=== PATIENT | male | born 1975 | race Caucasian/White ===

== ENCOUNTER → 2018-03-31 | Outpatient (CLI) | payer MEDICAID ==
--- NOTE | 2018-03-31 10:58 | MR ---
EXAMINATION TYPE: MR knee RT wo con DATE OF EXAM: 03/31/2018 COMPARISON: NONE HISTORY: Right knee pain, soft tissue mass distal to the medial knee. TECHNIQUE: Multiplanar, multisequence images of the knee is performed without IV contrast. FINDINGS: MEDIAL MENISCUS: Anterior horn is intact without tear. There is oblique increased signal posterior ho rn of medial meniscus appears to extend to inferior articular surface, in addition there is oblique i ncreased signal centrally in the avascular zone extends to both articular surfaces with fraying seen best sagittal image 8. LATERAL MENISCUS: Anterior and posterior horns some increased signal not definitively extending to ar ticular surface. CRUCIATE LIGAMENTS: The anterior and posterior cruciate ligaments are intact and unremarkable. COLLATERAL LIGAMENTS: The medial collateral ligament and lateral collateral ligament complex are inta ct and unremarkable. EXTENSOR MECHANISM: Visualized quadriceps and patellar tendons are intact. Increased signal proximal patellar pole is noted without suspicious tear or thinning fibers. EFFUSION: No significant suprapatellar joint effusion. POPLITEAL CYST: No popliteal/alberto cyst. TRICOMPARTMENT SPACES: Tricompartment joint spaces are fairly well preserved. There is mild to modera te tibial condylar spurring noted. CARTILAGE: Tricompartment articular cartilage is fairly well-maintained. There is no significant elyse dromalacia patella. BONE MARROW SIGNAL: Slight heterogeneity consistent with red marrow reconversion is present. No suspi cious edema is seen. OTHER: There is marker placed at level of palpable abnormality sagittal image 11 and coronal image 9. Within the subcutaneous fat at this level there is multiloculated area of slight T1 hypointensity an d T2 hyperintensity in almost a tubular configuration extending towards the mid to distal aspect of t he medial patellar tendon medially measuring roughly 3.1 cm transversely by 1.1 cm AP diameter by 1.0 cm craniocaudal dimension. This appears to have deeper extension to a larger multiloculated mass or fluid collection measuring 2.7 cm transversely axial image 12 by roughly 3.0 cm AP diameter by roughl y 2.6 cm craniocaudal diameter sagittal image 19. This is in close proximity to the anterior horn of medial meniscus likely reflecting paramensical cyst. IMPRESSION: 1. Full-thickness tear medial meniscus most prominent in the central avascular zone with additional f raying. 2. Lesion of concern along the anterior medial aspect of the proximal tibia is felt to reflect produc t of a para meniscal cyst related to tear that has elongated extension into the subcutaneous fat caus ing palpable abnormality. 3. [id number] tendinosis proximal patellar tendon.
== END | disposition home or self-care (01) ==
LOC: RADMRIMAIN 06:22
PROVIDERS: ATTEND Orthopaedic Surgery Sports Medicine
DX: S83.241A Other tear of medial meniscus, current injury, right knee, initial encounter (principal); M76.51 Patellar tendinitis, right knee

== ENCOUNTER 2019-10-17 10:45 | Emergency (ER) | payer MEDICAID, OTHER ==
[2019-10-17 10:50] VITALS: PULSE 86; RESP 18; TEMP 97.5
--- NOTE | 2019-10-17 11:05 | ED ---
Fall HPI - General Chief Complaint: Fall Stated Complaint: Fall Time Seen by Provider: 10/17/19 10:55 Source: patient, RN notes reviewed Mode of arrival: ambulatory Limitations: no limitations - History of Present Illness Initial Comments: 44-year-old male presents emergency Department with chief complaint of right knee pain. Patient states that he was coming off the last 2 steps of a ladder and states that he landed straight leg. Patient is to follow pop, over stretching his leg. Patient states that he woke up today and the pain is worse, increased swelling. 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 Patient states she's had no issues with his right. Patient states that he can barely bend. He states been feeling a lot of popping, clicking. - Related Data Previous Rx's Medication Instructions Recorded Ibuprofen [Motrin] 600 mg PO Q8HR PRN #30 tab 10/17/19 Allergies Allergy/AdvReac Type Severity Reaction Status Date / Time No Known Allergies Allergy Verified 10/17/19 10:49 Review of Systems ROS Statement: Those systems with pertinent positive or pertinent negative responses have been documented in the HPI. ROS Other: All systems not noted in ROS Statement are negative. Past Medical History Past Medical History: No Reported History History of Any Multi-Drug Resistant Organisms: None Reported Past Surgical History: Orthopedic Surgery Past Psychological History: No Psychological Hx Reported Smoking Status: Current every day smoker Past Alcohol Use History: None Reported Past Drug Use History: Marijuana General Exam Limitations: no limitations General appearance: alert, in no apparent distress Head exam: Present: atraumatic, normocephalic, normal inspection Eye exam: Present: normal appearance, PERRL, EOMI. Absent: scleral icterus, conjunctival injection, periorbital swelling Respiratory exam: Present: normal lung sounds bilaterally. Absent: respiratory distress, wheezes, rales, rhonchi, stridor Cardiovascular Exam: Present: regular rate, normal rhythm, normal heart sounds. Absent: systolic murmur, diastolic murmur, rubs, gallop, clicks Extremities exam: Present: other (Right leg there is some mild swelling on the knee, no erythema neurovascular intact patient has pain with range of motion of passive and active range of motion there is some pain with valgus and varus no true laxity noted.) Course Vital Signs 10/17/19 10:46 Temperature 97.5 F L Pulse Rate 86 Respiratory 18 Rate Blood Pressure 158/100 O2 Sat by Pulse 100 Oximetry Medical Decision Making - Medical Decision Making X-ray shows moderate amount of swelling, tricompartmental changes. An concerns probable ligamentous injury including ACL versus MCL. Patient placed in knee immobilizer will follow-up with orthopedics and return for any worsening symptoms. Disposition Clinical Impression: Fall, Right knee sprain Disposition: HOME SELF-CARE Condition: Stable Instructions (If sedation given, give patient instructions): Knee Sprain (ED), Knee Immobilizer (ED) Additional Instructions: Please return to the Emergency Department if symptoms worsen or any other concerns. Prescriptions: Ibuprofen [Motrin] 600 mg PO Q8HR PRN #30 tab PRN Reason: Pain Is patient prescribed a controlled substance at d/c from ED?: No Referrals: None,Stated [Primary Care Provider] - 1-2 days Dilip Lacy MD [STAFF PHYSICIAN] - 1-2 days Time of Disposition: 11:46
--- NOTE | 2019-10-17 11:34 | XR ---
EXAMINATION TYPE: XR knee complete RT DATE OF EXAM: 10/17/2019 CLINICAL HISTORY: Slip and fall injury with pain. TECHNIQUE: Three views of the right knee are obtained. COMPARISON: None. FINDINGS: There is no acute fracture/dislocation evident in right knee. Mild tricompartment joint sp aroldo loss. Mild to moderate subcutaneous edema medially with more focal roughly 3.5 cm subcutaneous he matoma suspected proximal tibial metaphyseal level. IMPRESSION: As above.
[2019-10-17] MEDS ORDERED: ACET/COD 300 MG/30 MG STARTER PACK 6 TAB BTL PO STA (11:47)
[2019-10-17 11:59] VITALS: BP 138/90
== END 2019-10-17 11:52 | disposition home or self-care (01) ==
LOC: EC 10:45
DX: S83.91XA Sprain of unspecified site of right knee, initial encounter (principal); F17.200 Nicotine dependence, unspecified, uncomplicated; Z85.830 Personal history of malignant neoplasm of bone; X50.9XXA Other and unspecified overexertion or strenuous movements or postures, initial encounter
CPT/HCPCS: 99283 ×2; 73562; L1830

== ENCOUNTER → 2019-11-02 | Outpatient (CLI) | payer OTHER ==
--- NOTE | 2019-11-04 14:49 | MR ---
EXAMINATION TYPE: MR knee RT wo con DATE OF EXAM: 11/02/2019 COMPARISON: 03/31/2018 HISTORY: Right knee pain, injury 2yrs ago Multiplanar multiecho imaging of the right knee was performed without contrast. The anterior and posterior cruciate ligaments are intact. There is moderate size knee joint effusion. There is 2.6 x 3 cm cystic fluid collection in the subcutaneous tissues at the anterior medial aspec t of the proximal tibia. The collateral ligaments appear intact. There is horizontal defect of the in ferior surface of the posterior horn medial meniscus related to horizontal tear. The lateral meniscus appears intact. There is no evidence for fracture. I see no focal bone destruction. IMPRESSION: No evidence of ligamentous tear. Horizontal tear of the posterior horn medial meniscus. Large knee joint effusion. Loculated cystic fluid collection in the subcutaneous tissues at the medial tibia that does not appea r to communicate with the knee joint effusion. No fracture. There is progression of the meniscal tear compared to previous exam. Cystic subcutaneous fluid collec tion increased compared to old exam. Knee joint effusion mostly new compared to old exam.
== END | disposition home or self-care (01) ==
LOC: RADMRIMAIN 11:59
PROVIDERS: ATTEND Orthopaedic Surgery
DX: M25.461 Effusion, right knee (principal); S83.206A Unspecified tear of unspecified meniscus, current injury, right knee, initial encounter

== ENCOUNTER → 2019-11-16 | Outpatient (CLI) | payer OTHER ==
[2019-11-16 16:44] LABS: Basophils # (A) 0.1 k/uL (0-0.2); Basophils % (A) 0 %; Eosinophils # (A) 0.3 k/uL (0-0.7); Eosinophils % (A) 2 %; HCT 46.7 % (39.0-53.0); HGB 15.5 gm/dL (13.0-17.5); Lymphocytes # (A) 2.5 k/uL (1.0-4.8); Lymphocytes % (A) 23 %; MCHC 33.2 g/dL (31.0-37.0); MCV 90.5 fL (80.0-100.0); Mean Platelet Volume 12.3; Monocytes # (A) 0.7 k/uL (0-1.0); Monocytes % (A) 6 %; Neutrophils % (A) 65 %; Platelet Count 192 k/uL (150-450); RBC 5.16 m/uL (4.30-5.90); RDW 12.6 % (11.5-15.5); WBC 10.7 k/uL (3.8-10.6)
[2019-11-16 16:57] LABS: Potassium 4.6 mmol/L (3.5-5.1)
== END | disposition home or self-care (01) ==
LOC: LABPAT 16:09
PROVIDERS: ATTEND Orthopaedic Surgery
DX: Z01.812 Encounter for preprocedural laboratory examination (principal); M23.91 Unspecified internal derangement of right knee
CPT/HCPCS: 80051; 85025

== ENCOUNTER → 2019-11-24 | Day surgery (SDC) | payer OTHER ==
[2019-11-23 08:19] VITALS: BMI 31.5
[2019-11-24 09:12] VITALS: TEMP 97
[2019-11-24 10:06] VITALS: RESP 17
[2019-11-24 10:36] VITALS: BP 136/90; PULSE 85
== END | disposition home or self-care (01) ==
LOC: OR 06:33
PROVIDERS: ATTEND Orthopaedic Surgery
DX: S83.241A Other tear of medial meniscus, current injury, right knee, initial encounter (principal); S83.281A Other tear of lateral meniscus, current injury, right knee, initial encounter; S83.31XA Tear of articular cartilage of right knee, current, initial encounter; X58.XXXA Exposure to other specified factors, initial encounter; M67.461 Ganglion, right knee; M19.90 Unspecified osteoarthritis, unspecified site; Z98.890 Other specified postprocedural states; F17.210 Nicotine dependence, cigarettes, uncomplicated; E66.9 Obesity, unspecified; Z68.36 Body mass index [BMI] 36.0-36.9, adult; Z87.39 Personal history of other diseases of the musculoskeletal system and connective tissue; Z80.9 Family history of malignant neoplasm, unspecified; Z79.1 Long term (current) use of non-steroidal anti-inflammatories (NSAID)
CPT/HCPCS: 88304; 29880; 29879; 27328; J2250; J1100; J0690; J2405; J2001; J3010; J2704; J1170

== ENCOUNTER 2020-08-27 11:51 | Emergency (ER) | payer OTHER ==
[2020-08-27 11:56] VITALS: BP 122/71; PULSE 78; RESP 18; TEMP 98.3
[2020-08-27] MEDS ORDERED: KETOROLAC 15 MG/ML 1 ML VIAL IM STA (12:17)
[2020-08-27] MEDS ORDERED: ACET/COD 300 MG/30 MG STARTER PACK 6 TAB BTL PO STA (12:17)
[2020-08-27] MEDS ORDERED: MORPHINE SULFATE 4 MG/ML SYRINGE IM STA (12:17)
--- NOTE | 2020-08-27 12:20 | ED ---
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 He presents today after lifting a couch yesterday and felt a snap and pull in his right shoulder. He reports since that time he cannot do any range of motion within the right shoulder. He states that he is right-handed. Patient states that he has some shooting pains going down her arm with range of motion. Patient reports he's had a history of being right-handed. - Related Data Home Medications Medication Instructions Recorded Confirmed Kratom 3 gram PO BID PRN 11/24/19 11/24/19 Previous Rx's Medication Instructions Recorded HYDROcodone/APAP 7.5-325MG [[place] 1 each PO Q6HR PRN #28 tab 11/24/19 7.5] Ibuprofen 800 mg PO Q8H PRN #40 tab 11/24/19 HYDROcodone/APAP 5-325MG [[place] 1 tab PO Q6HR PRN #10 tab 08/27/20 5-325] Ibuprofen [Motrin] 600 mg PO Q8HR PRN #20 tab 08/27/20 Allergies Allergy/AdvReac Type Severity Reaction Status Date / Time No Known Allergies Allergy Verified 08/27/20 11:56 Review of Systems ROS Statement: Those systems with pertinent positive or pertinent negative responses have been documented in the HPI. ROS Other: All systems not noted in ROS Statement are negative. 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 History of Any Multi-Drug Resistant Organisms: None Reported Past Surgical History: Orthopedic Surgery Past Psychological History: No Psychological Hx Reported Smoking Status: Current every day smoker Past Alcohol Use History: None Reported Past Drug Use History: Marijuana General Exam - General Exam Comments Initial Comments: 45-year-old male. Alert and oriented. Limitations: no limitations General appearance: alert, in no apparent distress Head exam: Present: atraumatic, normocephalic, normal inspection Eye exam: Present: normal appearance, PERRL, EOMI. Absent: scleral icterus, conjunctival injection, periorbital swelling ENT exam: Present: normal exam, mucous membranes moist Neck exam: Present: normal inspection. Absent: tenderness, meningismus, lymphadenopathy Respiratory exam: Present: normal lung sounds bilaterally. Absent: respiratory distress, wheezes, rales, rhonchi, stridor Cardiovascular Exam: Present: regular rate, normal rhythm, normal heart sounds. Absent: systolic murmur, diastolic murmur, rubs, gallop, clicks GI/Abdominal exam: Present: soft, normal bowel sounds. Absent: distended, tenderness, guarding, rebound, rigid Right Shoulder Exam: Present: normal inspection, tenderness, swelling. Absent: full ROM ( cannot do abduction or extension of the shoulder more than 15. ) Elbow exam: Present: normal inspection, full ROM Forearm Wrist exam: Present: normal inspection, full ROM Hand Wrist exam: Present: normal inspection, full ROM Neuro motor exam: Present: wrist extension intact, thumb opposition intact, thumb IP flexion intact, thumb adduction intact, fingers 2-5 abduction intact Back exam: Present: normal inspection Neurological exam: Present: alert, oriented X3, CN II-XII intact Psychiatric exam: Present: normal affect, normal mood Skin exam: Present: warm, dry, intact, normal color. Absent: rash Course Vital Signs 08/27/20 11:54 Temperature 98.3 F Pulse Rate 78 Respiratory 18 Rate Blood Pressure 122/71 O2 Sat by Pulse 100 Oximetry Medical Decision Making - Medical Decision Making 45-year-old male presents emergency department today for evaluation for right shoulder pain. Patient reportedly was lifting a couch and felt a sudden pop. 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 Discusses liquid chronic injury to the rotator cuff and edematous lifting his cause a complete separation of rotator cuff ligaments in muscles. He has a limited range of motion. X-ray showed no evidence of fracture or chronic arthropathy and elevation clavicle with before meals separation. There are no direct fall or trauma to the area. I did advise Patient follow-up with orthopedic and will discharge Patient with anti- inflammatory pain medication. Given no until cleared by orthopedic for work. All questions answered. - Radiology Data Radiology results: report reviewed Chronic arthropathy. Slight elevation of the clavicle can be socially with before meals joint separation. Correlate clinically. Disposition Clinical Impression: Injury of right rotator cuff Disposition: HOME SELF-CARE Condition: Good Instructions (If sedation given, give patient instructions): Rotator Cuff Injury (ED) Additional Instructions: Patient has a follow-up with e business specialist. Take the medication as prescribed. Return to emergency department if any alarming signs or symptoms occur. Patient can have his arm in the sling but still remember to take out frequently and complete range of motion to prevent frozen shoulder syndrome. Prescriptions: Ibuprofen [Motrin] 600 mg PO Q8HR PRN #20 tab PRN Reason: Pain HYDROcodone/APAP 5-325MG [[place] 5-325] 1 tab PO Q6HR PRN #10 tab PRN Reason: Pain Is patient prescribed a controlled substance at d/c from ED?: Yes If prescribed controlled substance>3 days was MAPS reviewed?: Prescribed <3 Days If opioid is for acute pain is fill amount 7 days or less?: Yes If Rx opioid, was Start Talking consent form obtained?: Yes Referrals: None,Stated [Primary Care Provider] - 1-2 days Steven Kumar DO [Doctor of Osteopathic Medicine] - 1-2 days Dilip Lacy MD [STAFF PHYSICIAN] - 1-2 days Time of Disposition: 13:05
--- NOTE | 2020-08-27 12:52 | XR ---
EXAMINATION TYPE: XR shoulder complete RT DATE OF EXAM: 08/27/2020 COMPARISON: NONE HISTORY: Pain TECHNIQUE: Three views are submitted. FINDINGS: There is widening of the AC joint which likely is chronic and may be on the basis of acro ostial lysi s. Rounded well-corticated chronic appearing densities are seen along the upper margin of the AC join t. The degree of AC joint separation not excluded. No acute fracture. No dislocation. IMPRESSION: 1. Chronic arthropathy. Slight elevation of the clavicle can be associated with an AC joint separatio n correlate clinically.
== END 2020-08-27 13:23 | disposition home or self-care (01) ==
LOC: EC 11:51
DX: S46.001A Unspecified injury of muscle(s) and tendon(s) of the rotator cuff of right shoulder, initial encounter (principal); F17.200 Nicotine dependence, unspecified, uncomplicated; X50.0XXA Overexertion from strenuous movement or load, initial encounter; Y92.69 Other specified industrial and construction area as the place of occurrence of the external cause; Y99.0 Civilian activity done for income or pay
CPT/HCPCS: 73030; 99284; 96372 ×2; J2270; J1885

== ENCOUNTER → 2020-09-19 | Outpatient (CLI) | payer OTHER ==
--- NOTE | 2020-09-19 16:55 | MR ---
EXAMINATION TYPE: MR shoulder RT wo con DATE OF EXAM: 09/19/2020 COMPARISON: None HISTORY: Pain Technique: Multiplanar, multiecho imaging on a 3.0 Hilda magnet is performed through the shoulder. Findings: There is diffuse marked thickening through the long head biceps tendon sheath with increase d signal. Long head biceps tendon the tendon is not identified. Tendon rupture should be considered No significant joint effusion is evident.Glenoid labrum as visualized on this noncontrast study appea rs intact. Rotator cuff tendons are evaluated. There is thickening of the distal supraspinatus tendon. Diffuse increased signal is also present to the tendon. Small amount of fluid is within the subacromial bursa and subdeltoid bursa. Perforation and partial tear without retraction is present. The distal suprasp inatus tendon is thickened. Rotator cuff muscles are intact without signal abnormality or fatty infiltration The acromioclavicular junction is hypertrophied. Some downward sloping of the distal acromion is pres ent. IMPRESSIONS: 1. Rupture of the distal long head biceps tendon within the tendon sheath may be present. Clinical co rrelation is recommended. Large amount of fluid is present, distending the sheath. Severe Tendinosis may be considered. 2. Thickening of the distal supraspinatus tendon with signal transversing the tendon. Perforation and tear of the distal supraspinatus tendon is present. No tendon or muscle retraction is evident.
== END | disposition home or self-care (01) ==
LOC: RADMRIMAIN 11:07
PROVIDERS: ATTEND Orthopaedic Surgery
DX: S46.111A Strain of muscle, fascia and tendon of long head of biceps, right arm, initial encounter (principal); M25.811 Other specified joint disorders, right shoulder; M75.101 Unspecified rotator cuff tear or rupture of right shoulder, not specified as traumatic

== ENCOUNTER → 2020-09-27 | Outpatient (CLI) | payer BC ==
[2020-09-27 11:56] LABS: Basophils # (A) 0.1 k/uL (0-0.2); Basophils % (A) 1 %; Eosinophils # (A) 0.2 k/uL (0-0.7); Eosinophils % (A) 3 %; HCT 52.4 % (39.0-53.0); Lymphocytes # (A) 1.7 k/uL (1.0-4.8); Lymphocytes % (A) 19 %; MCH 30.2 pg (25.0-35.0); MCHC 32.4 g/dL (31.0-37.0); Mean Platelet Volume 10.7; Monocytes # (A) 0.5 k/uL (0-1.0); Monocytes % (A) 5 %; Neutrophils # (A) 6.4 k/uL (1.3-7.7); Neutrophils % (A) 71 %; Platelet Count 215 k/uL (150-450); RBC 5.64 m/uL (4.30-5.90); RDW 13.3 % (11.5-15.5)
[2020-09-27 12:06] LABS: Potassium 5.2 mmol/L (3.5-5.1)
[2020-09-27 12:57] LABS: Large Platelets Present
== END | disposition home or self-care (01) ==
LOC: LABPAT 10:36
PROVIDERS: ATTEND Orthopaedic Surgery
DX: Z01.818 Encounter for other preprocedural examination (principal); M75.41 Impingement syndrome of right shoulder
CPT/HCPCS: 80051; 85025

== ENCOUNTER 2020-10-04 07:29 | Day surgery (SDC) | payer BC, OTHER ==
[2020-10-02 11:34] VITALS: BMI 31.5
--- NOTE | 2020-10-03 10:04 | HP ---
HISTORY AND PHYSICAL CHIEF COMPLAINT: Right shoulder pain. 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 He was picking up a couch when he felt a pop in his shoulder. He is having a difficult time raising his arm ever since. He is having night symptoms. His pain is 9/10. He denies previous significant problems. PAST MEDICAL HISTORY: Otherwise negative. PAST SURGICAL HISTORY: Significant for bilateral carpal tunnel surgery and left knee surgery. CURRENT MEDICATIONS: None. ALLERGIES: He denies drug allergies. FAMILY HISTORY: Significant for cancer. SOCIAL HISTORY: Significant for 1/2 pack per day tobacco use. REVIEW OF SYSTEMS: Sixteen-point review of systems otherwise reviewed and is noncontributory. PHYSICAL EXAMINATION: On examination, the patient is approximately 5 feet 10 inches, 220 pounds of endomorphic habitus. HEENT exam is nonfocal. Neck is supple. On examination of the right shoulder, he is tender about the anterior subacromial space. Active range of motion forward elevation 140 degrees, external rotation with arm side 50 degrees, internal rotation to L4. Motor strength is 5 minus over 5 for external rotation, 4+ over 5 for abduction. Impingement tests, Neer test, and Speed test are positive. His distal neurovascular exam appears intact in the right upper extremity. MRI report 09/19/2020 shows evidence of a proximal biceps rupture in addition to supraspinatus tear. IMPRESSION: Acute right rotator cuff tear/proximal biceps rupture. RECOMMENDATIONS: I talked to the patient at length regarding his condition and treatment options. At this point, he is quite symptomatic after this acute injury. After thorough discussion, he opts to proceed with surgery. We will plan to proceed with arthroscopic evaluation with probable subacromial decompression in addition to biceps debridement and probable rotator cuff repair. We will likely perform that as an outpatient procedure. Risks and benefits were discussed at length in layman's terms. MMODL / IJN: [id number] /
[~2020-10-04 07:29] MED LIST: DEXAMETHASONE SOD PHOSPHATE 4 MG/ML 1 ML VIAL IV ONE; HYDROmorphone 0.5 MG/0.5 ML SYRINGE IVP PRN; LACTATED RINGERS 1,000 ML IV SCH; LIDOCAINE 1% (10MG/ML) FOR IV START INTRADERMA PRN; MIDAZOLAM 2 MG/2 ML VIAL IV PRN; ONDANSETRON 4 MG/2 ML VIAL IVP ONE
[2020-10-04] MEDS ORDERED: MIDAZOLAM 2 MG/2 ML VIAL IVP ONE (08:20)
--- NOTE | 2020-10-04 08:48 | P.ANPRN ---
Procedure Note - Anesthesia - Nerve Block Performed Right Interscalene Single Time Out Performed: Yes Date of Procedure: 10/04/20 Procedure Start Time: Procedure Stop Time: Location of Patient: PreOp Indication: Acute Post-Operative Pain, Requested by Surgeon Sedation Type: Sedate with meaningful contact maintained Preparation: Sterile Prep Position: Supine Needle Types: Pajunk Needle Gauge: 21 Ultrasound used to visualize needle placement: Yes Ultrasound used to observe medication spread: Yes Resistance on Injection: Normal Image Stored and Saved: Yes Events: Uneventful and Well Tolerated (ropi .5% 20cc plus dexamethasone 4mg)
[2020-10-04] MEDS ORDERED: fentaNYL (PF) 50 MCG/ML 2 ML AMP ONE (09:14)
[2020-10-04] MEDS ORDERED: GLYCOPYRROLATE 0.2 MG/ML 2 ML VIAL ONE (09:14)
[2020-10-04] MEDS ORDERED: DEXAMETHASONE SOD PHOSPHATE 4 MG/ML 1 ML VIAL ONE (09:14)
[2020-10-04] MEDS ORDERED: SUCCINYLCHOLINE CHLORIDE 100 MG/5 ML SYR IV ONE (09:14)
[2020-10-04] MEDS ORDERED: ROCURONIUM 10 MG/ML (10 ML VIAL) IV ONE (09:14)
[2020-10-04] MEDS ORDERED: MIDAZOLAM 2 MG/2 ML VIAL ONE (09:14)
[2020-10-04] MEDS ORDERED: ROPIVACAINE 5 MG/ML 30 ML VIAL ONE (09:14)
[2020-10-04] MEDS ORDERED: NEOSTIGMINE 1 MG/ML 10 ML VIAL ONE (09:14)
[2020-10-04] MEDS ORDERED: LIDOCAINE 1% INJ 10MG/ML (20 ML MDV) ONE (09:14)
[2020-10-04] MEDS ORDERED: PROPOFOL 10 MG/ML 20 ML VIAL IV ONE (09:14)
--- NOTE | 2020-10-04 10:31 | P.OP ---
Date of Procedure: 10/04/20 Preoperative Diagnosis: Right rotator cuff tear/proximal biceps rupture Postoperative Diagnosis: Same Procedure(s) Performed: Right shoulder arthroscopic subacromial decompression/biceps debridement/rotator cuff repair Implants: Arthrex 4.75 mm swivel lock anchor 2 Anesthesia: dania PEREIRA Surgeon: Amandeep Olsen Physician Coding Specialist #1: Sung Agudelo Estimated Blood Loss (ml): 10 Pathology: none sent Condition: stable Disposition: PACU Indications for Procedure: The patient's a 45-year-old male who presents after an injury with persistent right shoulder pain and clinical evidence of a rotator cuff tear along the proximal biceps rupture. A discussion of the risks and benefits of conservative measures versus operative intervention was made with patient. He opted to proceed with surgery. Operative risks to include infection, neurovascular injury, development of blood clots, possible tendon rerupture, possible postoperative stiffness and need for subsequent procedures was discussed. Informed consent was obtained. Operative Findings: As below Description of Procedure: The patient was brought to the operating room, and after induction of general anesthesia was placed in a beachchair position. A preoperative interscalene block was placed for postoperative analgesia. I examined the right shoulder. There was no gross block to passive motion or gross glenohumeral instability. The right upper extremity was prepped and draped in normal fashion. The bony outlines the acromion, distal clavicle, and coracoid process were outlined with a skin marker. The glenohumeral joint was inflated with 50 mL of saline utilizing a spinal needle from posterior approach. A posterior portal was made through a 5 mm skin incision 1 cm medial and inferior to the posterior lateral border time. A blunt trocar was used to easily into the joint. Diagnostic arthroscopy was performed. An anterior portal was made just lateral to the coracoid process entering the joint above the subscapularis tendon. The subscapularis tendon appeared to be intact. Anterior labrum was intact. The inferior recess was inspected. The posterior labrum was intact. The proximal biceps was ruptured off the superior labrum. The remnant was debrided back to stable base with a motorized shaver. On inspection the rotator cuff, a full- thickness tear involving the anterior aspect the supraspinatus was noted measuring approximately 1 cm. Minimal retraction was noted.. A lateral portal was made 2 centimeters inferior to the anterior lateral border of the acromion. The rotator cuff was easily brought back to the greater tuberosity. The soft tissue on the undersurface of the acromion was debrided with a motorized shaver and electrocautery clearly defining the anterior medial and lateral borders as well as the distal clavicle. An anterior inferior acromioplasty was performed with a motorized eugenia starting anterolateral, then extending this posteriorly, then extending this medially. I converted to a flat acromion and this was verified in the posterior and lateral viewing portals. The greater tuberosity was lightly decorticating with a shaver down to a bleeding bony surface. An accessory superior lateral portals made just off the lateral edge of the acromion for anchor placement. A 4.75 mm swivel lock anchor preloaded with fiber tape then placed just off the articular surface with the appropriate starting awl. These fiber tapes were then passed the rotator cuff with a scorpion suture passer. A lateral 4.75 mm swivel lock anchor was placed after appropriately tensioning the rotator cuff. Good purchase was obtained. Final arthroscopic view showed adequate compression at the footprint. The arthroscope was then removed. The portals were closed with simple 3-0 nylon sutures. A sterile dressing was applied in addition to a sling. The patient was then awoken from general anesthesia and transferred to recovery room in good condition. Blood loss was estimated at 10 mL. No complications were incurred. Sponge and needle counts were correct in the case. Abdifatah STEINBERG assisted and the major components of the case to include arm positioning, anchor placement, and rotator cuff repair.
[2020-10-04 10:48] VITALS: TEMP 98.8
[2020-10-04 11:16] VITALS: RESP 17
[2020-10-04 11:32] VITALS: BP 121/70; PULSE 79
== END 2020-10-04 11:57 | disposition home or self-care (01) ==
LOC: OR 07:29
PROVIDERS: ATTEND Orthopaedic Surgery
DX: S46.011A Strain of muscle(s) and tendon(s) of the rotator cuff of right shoulder, initial encounter (principal); S46.211A Strain of muscle, fascia and tendon of other parts of biceps, right arm, initial encounter; X58.XXXA Exposure to other specified factors, initial encounter; Z98.890 Other specified postprocedural states; Z80.9 Family history of malignant neoplasm, unspecified; F17.210 Nicotine dependence, cigarettes, uncomplicated
CPT/HCPCS: 64415; 76942; 29826; 29827; C1713; C1894; J2250; J1100; J2710; J0690; J2405; J2001; J3010; J2795; J0330; J2704

== ENCOUNTER 2020-12-22 17:09 | Emergency (ER) | payer BC, OTHER ==
--- NOTE | 2020-12-22 18:34 | XR ---
Result: History: Pain status post fall. Comparison: None available. Technique: Frontal, lateral and oblique views of the left elbow. Findings: Bone mineralization is appropriate for age. There is soft tissue wound at the anterior aspect of the elbow. No acute fracture or dislocation is s een. The visualized osseous structures are in anatomic alignment. The joint spaces are preserved. There is no significant elbow joint effusion. No radiopaque foreign body. Impression: Soft tissue wound without acute osseous abnormality.
--- NOTE | 2020-12-22 18:53 | ED ---
Upper Extremity HPI - General Chief Complaint: Extremity Injury, Upper Stated Complaint: Arm injury, hung by his arm Time Seen by Provider: 12/22/20 18:38 Source: patient, RN notes reviewed Mode of arrival: ambulatory Limitations: no limitations - History of Present Illness Initial Comments: A she is a 45-year-old male that comes in with the complaint of left elbow pain. He noted that he was walking his dog when the dog jerked him and pulled him off the porch. He noted that he grabbed onto the handrail with his left elbow crease and was just hanging there. He wanted to come in to make sure that nothing was broken or seriously wrong. He noted the pain is tolerable and that he can take Tylenol Motrin at home as needed. Patient denied any weakness numbness tingling decreased range of motion or strength chest pain shortness of breath headache nausea vomiting diarrhea constipation fever fatigue chills. - Related Data Home Medications Medication Instructions Recorded Confirmed Kratom 3 gram PO BID PRN 11/24/19 10/04/20 Previous Rx's Medication Instructions Recorded HYDROcodone/APAP 7.5-325MG [[place] 1 each PO Q6HR PRN #28 tab 10/04/20 7.5] Allergies Allergy/AdvReac Type Severity Reaction Status Date / Time No Known Allergies Allergy Verified 12/22/20 17:20 Review of Systems ROS Statement: Those systems with pertinent positive or pertinent negative responses have been documented in the HPI. ROS Other: All systems not noted in ROS Statement are negative. 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 Absent: scleral icterus, conjunctival injection, periorbital swelling Neck exam: Present: normal inspection. Absent: tenderness, meningismus, lymphadenopathy Respiratory exam: Present: normal lung sounds bilaterally. Absent: respiratory distress, wheezes, rales, rhonchi, stridor Cardiovascular Exam: Present: regular rate, normal rhythm, normal heart sounds. Absent: systolic murmur, diastolic murmur, rubs, gallop, clicks GI/Abdominal exam: Present: soft, normal bowel sounds. Absent: distended, tenderness, guarding, rebound, rigid Extremities exam: Present: full ROM, normal capillary refill. Absent: normal inspection (Left upper forearm significantly swollen with minimal bruising laterally across the antecubital area.), tenderness, pedal edema, joint swelling, calf tenderness Neurological exam: Present: alert, oriented X3, CN II-XII intact Psychiatric exam: Present: normal affect, normal mood Skin exam: Present: warm, dry, intact, normal color. Absent: rash Course Vital Signs 12/22/20 17:16 Temperature 97.6 F Pulse Rate 90 Respiratory 20 Rate Blood Pressure 162/110 O2 Sat by Pulse 100 Oximetry Medical Decision Making - Medical Decision Making 45-year-old male complaining of left elbow pain. Elbow x-ray ordered. X-ray negative for any acute fractures or dislocations, significant soft tissue swelling. Case discussed with Dr. Gunderson, patient can discharge home. Disposition Clinical Impression: Left elbow pain Disposition: HOME SELF-CARE Condition: Stable Instructions (If sedation given, give patient instructions): Swollen Joint (ED), Elbow Sprain (ED) Additional Instructions: Please return to the Emergency Department if symptoms worsen or any other concerns. Follow-up with primary care in 3-5 days. Take [id number] Tylenol Motrin for symptomatic management of pain and inflammation. Rest ice compress elevate. Use as tolerated. Is patient prescribed a controlled substance at d/c from ED?: No Referrals: None,Stated [Primary Care Provider] - 1-2 days Time of Disposition: 18:56
[2020-12-22 20:00] VITALS: BP 166/90; PULSE 80; RESP 16; TEMP 98.1
== END 2020-12-22 19:16 | disposition home or self-care (01) ==
LOC: EC 17:09
DX: M25.522 Pain in left elbow (principal); F17.200 Nicotine dependence, unspecified, uncomplicated; Z85.830 Personal history of malignant neoplasm of bone
CPT/HCPCS: 99283

== ENCOUNTER 2023-01-26 16:07 | Emergency (ER) | payer OTHER ==
[2023-01-26] MEDS ORDERED: MORPHINE SULFATE 4 MG/ML SYRINGE IV STA (16:23)
--- NOTE | 2023-01-26 16:24 | ED ---
General Adult HPI - General Chief complaint: Trauma Stated complaint: RT ARM INJURY Time Seen by Provider: 01/26/23 16:20 Source: patient Mode of arrival: ambulatory Limitations: no limitations - History of Present Illness Initial comments: Dictation was produced using [employer] dictation software. please excuse any grammatical, word or spelling errors. Chief Complaint: 47-year-old male presents to the emergency department after fall History of Present Illness: Is 47-year-old male presents to the emergency department after fell off the first or he is working on the outside of the house. He landed on his left side. States he hurt his left wrist and his left ribs. Patient has no shortness of breath. Denies abdominal pain. Denies any loss of consciousness. No neck pain. The ROS documented in this emergency department record has been reviewed and confirmed by me. Those systems with pertinent positive or negative responses have been documented in the HPI. All other systems are other negative and/or noncontributory. - Related Data Previous Rx's Medication Instructions Recorded HYDROcodone/APAP 5-325MG [[place] 1 tab PO Q6HR PRN 3 Days #12 tab 01/26/23 5-325] Allergies Allergy/AdvReac Type Severity Reaction Status Date / Time No Known Allergies Allergy Verified 01/26/23 17:18 Review of Systems ROS Statement: Those systems with pertinent positive or pertinent negative responses have been documented in the HPI. ROS Other: All systems not noted in ROS Statement are negative. 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 History of Any Multi-Drug Resistant Organisms: None Reported Past Surgical History: Orthopedic Surgery Additional Past Surgical History / Comment(s): carpal tunnel sx 01/2023, knee surgeries as child Past Anesthesia/Blood Transfusion Reactions: No Reported Reaction Past Psychological History: No Psychological Hx Reported Smoking Status: Current every day smoker Past Alcohol Use History: None Reported Past Drug Use History: None Reported General Exam - General Exam Comments Initial Comments: PHYSICAL EXAM: General Impression: Alert and oriented x3, not in acute distress HEENT: Normocephalic atraumatic, extra-ocular movements intact, pupils equal and reactive to light bilaterally, mucous membranes moist. Cardiovascular: Heart regular rate and rhythm Chest: Able to complete full sentences, no retractions, no tachypnea Abdomen: abdomen soft, non-tender, non-distended, no organomegaly Musculoskeletal: Pulses present and equal in all extremities, no peripheral edema, gross deformity of the left wrist, palpatory tenderness to the left lower ribs Motor: no focal deficits noted Neurological: CN II-XII grossly intact, no focal motor or sensory deficits noted Skin: Intact with no visualized rashes Psych: Normal affect and mood Limitations: no limitations Course Vital Signs 01/26/23 01/26/23 01/26/23 16:13 16:25 16:40 Temperature 97.9 F 97.9 F 97.8 F Pulse Rate 113 H Pulse Rate [ 113 H 96 Telemetry Technician ] Respiratory 16 22 20 Rate Blood Pressure 140/87 Blood Pressure 137/90 134/91 [Right Arm Sitting] O2 Sat by Pulse 97 98 99 Oximetry Fraction of Inspired Oxygen (FIO2) 01/26/23 01/26/23 01/26/23 16:55 17:10 17:31 Temperature 97.9 F 97.8 F 97.7 F Pulse Rate 92 Pulse Rate [ 93 111 H Telemetry Technician ] Respiratory 20 19 19 Rate Blood Pressure 122/88 Blood Pressure 147/86 139/95 [Right Arm Sitting] O2 Sat by Pulse 98 98 99 Oximetry Fraction of Inspired Oxygen (FIO2) 01/26/23 01/26/23 01/26/23 18:11 18:20 18:25 Temperature Pulse Rate 98 106 H 98 Pulse Rate [ Telemetry Technician ] Respiratory 20 18 18 Rate Blood Pressure 142/83 143/90 146/78 Blood Pressure [Right Arm Sitting] O2 Sat by Pulse 100 100 99 Oximetry Fraction of Inspired Oxygen (FIO2) 01/26/23 18:31 Temperature Pulse Rate Pulse Rate [ Telemetry Technician ] Respiratory Rate Blood Pressure Blood Pressure [Right Arm Sitting] O2 Sat by Pulse Oximetry Fraction of 100 Inspired Oxygen (FIO2) - Reevaluation(s) Reevaluation #1: 01/26/23 16:23 Patient presents as a level II activation due to mechanism of injury. Patient placed in trauma bay #1. Patient not showing any signs of significant distress. He does have gross deformity to the left wrist. Patient seen and evaluated the ATLS protocol. 01/26/23 16:24 Reevaluation #2: 01/26/23 19:53 Patient observed in emergency department after procedural sedation. Reevaluated at 753 from been stable medical condition. Patient is well-appearing acute distress. Patient agreeable for discharge. Procedures - Orthopedic Fracture Reduction Fracture #1 Consent Obtained: verbal consent Side: left Fracture Reduction Location: radius Technique: direct manipulation Post Reduction X-rays Demonstrate: acceptable reduction Post-Reduction Neuro Exam: intact Post-Reduction Vascular Exam: intact Splint Applied: Yes Patient Tolerated Procedure: well - Procedural Sedation *Procedural Sedation Start Time: 18:20 *Procedural Sedation Stop Time: 18:32 *Indications: fracture/dislocation reduction *Previous Adverse Reaction to Anesthesia/Sedation?: No *ASA Class: II *Mallampati Airway Score: 2 Preparation: utility locator applied, pulse oximeter, capnometry used, supplemental O2 applied Ketamine: IV Ketamine Dose: 100 Complications: none Patient Tolerated Procedure: well Medical Decision Making - Medical Decision Making Was pt. sent in by a medical professional or institution (IDRIS Chavez, HEAD OF DATA, urgent care, hospital, or fci...) When possible be specific @ -No Did you speak to anyone other than the patient for history (EMS, parent, family, police, friend...)? What history was obtained from this source @ -No Did you review nursing and triage notes (agree or disagree)? Why? @ -I reviewed and agree with nursing and triage notes Were old charts reviewed (outside hosp., previous admission, EMS record, old EKG, old radiological studies, urgent care reports/EKG's, fci records)? Report findings @ -No old charts were reviewed Differential Diagnosis (chest pain, altered mental status, abdominal pain women, abdominal pain men, vaginal bleeding, musculoskeletal, weakness, fever, dyspnea, syncope, headache, dizziness, GI bleed, back pain, seizure, CVA, palpatations, mental health)? @ -Neck fracture, intracranial bleed, scalp fracture, back fracture, rib fractu re, wrist fracture EKG interpreted by me (3pts min.). @ -My EKG interpretation: Ventricular rate 81, sinus rhythm,. Interval 150, QRS 91, QTC 394. No UT prolongation, no QTC prolongation, no ST or T-wave changes noted. Overall, this EKG is unremarkable X-rays interpreted by me (1pt min.). @ -Chest x-ray pelvis x-ray unremarkable. Wrist x-ray shows distal radius fracture CT interpreted by me (1pt min.). @ -CT scan her head C-spine shows no acute processes. CTs at chest of the pelvis shows no acute processes U/S interpreted by me (1pt. min.). @ -None done What testing was considered but not performed or refused? (CT, X-rays, U/S, labs)? Why? @ -None What meds were considered but not given or refused? Why? @ -None Did you discuss the management of the patient with other professionals (professionals i.e. DrChristel, PA, HEAD OF DATA, lab, RT, psych nurse, psychotherapist social worker, proof plate maker, teacher, account officer, case resource manager)? Give summary @ -Case discussed with Dr. Kate upon initial arrival per protocol. Case was discussed with orthopedic surgery Dr. Lacy regarding patient's wrist fracture. States that he should follow-up with hand surgery for same the morning tomorrow Was smoking cessation discussed for >3mins.? @ -No Was critical care preformed (if so, how long)? @ -No Were there social determinants of health that impacted care today? How? (Homelessness, low income, unemployed, alcoholism, drug addiction, transportation, low edu. Level, literacy, decrease access to med. care, assisted, rehab)? @ -No Was there de-escalation of care discussed even if they declined (Discuss DNR or withdrawal of care, Hospice)? DNR status @ -No What co-morbidities impacted this encounter? (DM, HTN, Smoking, COPD, CAD, Cancer, CVA, ARF, Chemo, Hep., AIDS, mental health diagnosis, sleep apnea, morbid obesity)? @ -None Was patient admitted / discharged? Hospital course, mention meds given and route, prescriptions, significant lab abnormalities, going to OR and other pertinent info. @ -47-year-old male presents to emergency department after fall. Imaging studies suggest that his only injury is a distal radius fracture. Procedural sedation was performed. Patient fracture was reduced placed in a splint. Redu ction was acceptable. Patient observed in emergency department after been given procedural sedation. Undiagnosed new problem with uncertain prognosis? @ -No Drug Therapy requiring intensive monitoring for toxicity (Heparin, Nitro, Insulin, Cardizem)? @ -No Were any procedures done? @ -No Diagnosis/symptom? Acute, or Chronic, or Acute on Chronic? Uncomplicated (wi thout systemic symptoms) or Complicated (systemic symptoms)? @ -1. Fall from height, 2. Wrist fracture Side effects of treatment? @ -No Exacerbation, Progression, or Severe Exacerbation? @ -No Poses a threat to life or bodily function? How? (Chest pain, [place], [place], pneumonia, PE, COPD, DKA, ARF, appy, cholecystitis, CVA, Diverticulitis, Homicidal, Suicidal, threat to staff... and all critical care pts) @ -yes - Lab Data Result diagrams: 01/26/23 16:34 01/26/23 16:34 Lab Results 01/26/23 01/26/23 01/26/23 Range/Units 16:34 16:34 16:34 WBC 12.7 H (3.8-10.6) k/uL RBC 4.86 (4.30-5.90) m/uL Hgb 14.7 (13.0-17.5) gm/dL Hct 44.3 (39.0-53.0) % MCV 91.1 (80.0-100.0) fL MCH 30.3 (25.0-35.0) pg MCHC 33.2 (31.0-37.0) g/dL RDW 12.8 (11.5-15.5) % Plt Count 217 (150-450) k/uL MPV 10.1 Neutrophils % 81 % Lymphocytes % 12 % Monocytes % 4 % Eosinophils % 1 % Basophils % 0 % Neutrophils # 10.3 H (1.3-7.7) k/uL Lymphocytes # 1.5 (1.0-4.8) k/uL Monocytes # 0.6 (0-1.0) k/uL Eosinophils # 0.2 (0-0.7) k/uL Basophils # 0.0 (0-0.2) k/uL PT 10.4 (9.0-12.0) sec INR 1.0 (<1.2) APTT 25.8 (22.0-30.0) sec Sodium (137-145) mmol/L Potassium (3.5-5.1) mmol/L Chloride (98-107) mmol/L Carbon Dioxide (22-30) mmol/L Anion Gap mmol/L BUN (9-20) mg/dL Creatinine (0.66-1.25) mg/dL Est GFR (CKD-EPI)AfAm (>60 ml/min/1.73 sqM) Est GFR (CKD-EPI)NonAf (>60 ml/min/1.73 sqM) Glucose (74-99) mg/dL Calcium (8.4-10.2) mg/dL Total Bilirubin (0.2-1.3) mg/dL AST (17-59) U/L ALT (4-49) U/L Alkaline Phosphatase (38-126) U/L Troponin I (0.000-0.034) ng/mL Total Protein (6.3-8.2) g/dL Albumin (3.5-5.0) g/dL Urine Opiates Screen Detected H (NotDetected) Ur Oxycodone Screen Not Detected (NotDetected) Urine Methadone Screen Not Detected (NotDetected) Ur Propoxyphene Screen Not Detected (NotDetected) Ur Barbiturates Screen Not Detected (NotDetected) U Tricyclic Antidepress Not Detected (NotDetected) Ur Phencyclidine Scrn Not Detected (NotDetected) Ur Amphetamines Screen Detected H (NotDetected) U Methamphetamines Scrn Detected H (NotDetected) U Benzodiazepines Scrn Not Detected (NotDetected) Urine Cocaine Screen Not Detected (NotDetected) U Marijuana (THC) Screen Detected H (NotDetected) Serum Alcohol mg/dL Blood Type Blood Type Confirm Blood Type Recheck Bld Type Recheck Status Antibody Screen Spec Expiration Date 01/26/23 01/26/23 01/26/23 Range/Units 16:34 16:34 16:34 WBC (3.8-10.6) k/uL RBC (4.30-5.90) m/uL Hgb (13.0-17.5) gm/dL Hct (39.0-53.0) % MCV (80.0-100.0) fL MCH (25.0-35.0) pg MCHC (31.0-37.0) g/dL RDW (11.5-15.5) % Plt Count (150-450) k/uL MPV Neutrophils % % Lymphocytes % % Monocytes % % Eosinophils % % Basophils % % Neutrophils # (1.3-7.7) k/uL Lymphocytes # (1.0-4.8) k/uL Monocytes # (0-1.0) k/uL Eosinophils # (0-0.7) k/uL Basophils # (0-0.2) k/uL PT (9.0-12.0) sec INR (<1.2) APTT (22.0-30.0) sec Sodium 141 (137-145) mmol/L Potassium 4.6 (3.5-5.1) mmol/L Chloride 105 (98-107) mmol/L Carbon Dioxide 22 (22-30) mmol/L Anion Gap 14 mmol/L BUN 32 H (9-20) mg/dL Creatinine 1.04 (0.66-1.25) mg/dL Est GFR (CKD-EPI)AfAm >90 (>60 ml/min/1.73 sqM) Est GFR (CKD-EPI)NonAf 86 (>60 ml/min/1.73 sqM) Glucose 89 (74-99) mg/dL Calcium 9.6 (8.4-10.2) mg/dL Total Bilirubin 0.9 (0.2-1.3) mg/dL AST 46 (17-59) U/L ALT 35 (4-49) U/L Alkaline Phosphatase 63 (38-126) U/L Troponin I <0.012 (0.000-0.034) ng/mL Total Protein 7.4 (6.3-8.2) g/dL Albumin 4.7 (3.5-5.0) g/dL Urine Opiates Screen (NotDetected) Ur Oxycodone Screen (NotDetected) Urine Methadone Screen (NotDetected) Ur Propoxyphene Screen (NotDetected) Ur Barbiturates Screen (NotDetected) U Tricyclic Antidepress (NotDetected) Ur Phencyclidine Scrn (NotDetected) Ur Amphetamines Screen (NotDetected) U Methamphetamines Scrn (NotDetected) U Benzodiazepines Scrn (NotDetected) Urine Cocaine Screen (NotDetected) U Marijuana (THC) Screen (NotDetected) Serum Alcohol <10 mg/dL Blood Type O Positive Blood Type Confirm Blood Type Recheck No Previous Record Bld Type Recheck Status CABO Indicated Antibody Screen NEGATIVE Spec Expiration Date 01/29/2023233301/26/23 Range/Units 16:35 WBC (3.8-10.6) k/uL RBC (4.30-5.90) m/uL Hgb (13.0-17.5) gm/dL Hct (39.0-53.0) % MCV (80.0-100.0) fL MCH (25.0-35.0) pg MCHC (31.0-37.0) g/dL RDW (11.5-15.5) % Plt Count (150-450) k/uL MPV Neutrophils % % Lymphocytes % % Monocytes % % Eosinophils % % Basophils % % Neutrophils # (1.3-7.7) k/uL Lymphocytes # (1.0-4.8) k/uL Monocytes # (0-1.0) k/uL Eosinophils # (0-0.7) k/uL Basophils # (0-0.2) k/uL PT (9.0-12.0) sec INR (<1.2) APTT (22.0-30.0) sec Sodium (137-145) mmol/L Potassium (3.5-5.1) mmol/L Chloride (98-107) mmol/L Carbon Dioxide (22-30) mmol/L Anion Gap mmol/L BUN (9-20) mg/dL Creatinine (0.66-1.25) mg/dL Est GFR (CKD-EPI)AfAm (>60 ml/min/1.73 sqM) Est GFR (CKD-EPI)NonAf (>60 ml/min/1.73 sqM) Glucose (74-99) mg/dL Calcium (8.4-10.2) mg/dL Total Bilirubin (0.2-1.3) mg/dL AST (17-59) U/L ALT (4-49) U/L Alkaline Phosphatase (38-126) U/L Troponin I (0.000-0.034) ng/mL Total Protein (6.3-8.2) g/dL Albumin (3.5-5.0) g/dL Urine Opiates Screen (NotDetected) Ur Oxycodone Screen (NotDetected) Urine Methadone Screen (NotDetected) Ur Propoxyphene Screen (NotDetected) Ur Barbiturates Screen (NotDetected) U Tricyclic Antidepress (NotDetected) Ur Phencyclidine Scrn (NotDetected) Ur Amphetamines Screen (NotDetected) U Methamphetamines Scrn (NotDetected) U Benzodiazepines Scrn (NotDetected) Urine Cocaine Screen (NotDetected) U Marijuana (THC) Screen (NotDetected) Serum Alcohol mg/dL Blood Type Blood Type Confirm O Positive Blood Type Recheck Bld Type Recheck Status Antibody Screen Spec Expiration Date Disposition Clinical Impression: Wrist fracture, Fall Disposition: HOME SELF-CARE Condition: Good Instructions (If sedation given, give patient instructions): Wrist Fracture in Adults (ED), Moderate Sedation (ED) Prescriptions: HYDROcodone/APAP 5-325MG [[place] 5-325] 1 tab PO Q6HR PRN 3 Days #12 tab PRN Reason: Severe Pain Is patient prescribed a controlled substance at d/c from ED?: Yes If prescribed controlled substance>3 days was MAPS reviewed?: Prescribed <3 Days Referrals: Kavya Tomlinson DO [Doctor of Osteopathic Medicine] - 1-2 days Time of Disposition: 18:52
--- NOTE | 2023-01-26 16:43 | XR ---
EXAMINATION TYPE: XR pelvis AP view DATE OF EXAM: 01/26/2023 CLINICAL HISTORY: Fall injury with pain. TECHNIQUE: 2 frontal views of the pelvis are obtained. COMPARISON: None. FINDINGS: No acute displaced pelvic fractures. Moderate left greater than right axial joint space los s and bilateral hip and acetabular spurring. Pubic symphysis is intact. Sacroiliac joints are maintai riccardo. Single left-sided pelvic phlebolith incidentally noted. IMPRESSION: There is no acute displaced fracture in the pelvis.
--- NOTE | 2023-01-26 16:44 | XR ---
EXAMINATION TYPE: XR chest 1V portable DATE OF EXAM: 01/26/2023 COMPARISON: NONE HISTORY: Falling injury with pain. TECHNIQUE: Single frontal view of the chest is obtained. FINDINGS: There is no focal air space opacity, pleural effusion, or pneumothorax seen. The cardiac silhouette size is within normal limits. The osseous structures are intact. Overlying EKG leads are present. IMPRESSION: No acute process.
--- NOTE | 2023-01-26 16:46 | XR ---
EXAMINATION TYPE: XR wrist limited LT DATE OF EXAM: 01/26/2023 CLINICAL HISTORY: Fall injury with pain TECHNIQUE: Frontal and lateral images of the left wrist are obtained. COMPARISON: Bilateral hand x-rays of the 2022 FINDINGS: There is acute comminuted displaced intra-articular fracture through the distal radial meta -epiphysis. There is impaction and posterior displacement of distal fracture fragments. Focal moderat e associated soft tissue swelling is seen. Distal ulna is intact. Carpal joint spaces are preserved. IMPRESSION: As above.
[2023-01-26 17:09] LABS: Basophils % (A) 0 %; Eosinophils # (A) 0.2 k/uL (0-0.7); Eosinophils % (A) 1 %; HCT 44.3 % (39.0-53.0); HGB 14.7 gm/dL (13.0-17.5); Lymphocytes # (A) 1.5 k/uL (1.0-4.8); Lymphocytes % (A) 12 %; MCH 30.3 pg (25.0-35.0); MCHC 33.2 g/dL (31.0-37.0); MCV 91.1 fL (80.0-100.0); Mean Platelet Volume 10.1; Monocytes # (A) 0.6 k/uL (0-1.0); Monocytes % (A) 4 %; Neutrophils # (A) 10.3 k/uL (1.3-7.7); Neutrophils % (A) 81 %; Platelet Count 217 k/uL (150-450); RBC 4.86 m/uL (4.30-5.90); RDW 12.8 % (11.5-15.5); WBC 12.7 k/uL (3.8-10.6)
[2023-01-26 17:14] LABS: Partial Thromboplastin Time 25.8 sec (22.0-30.0); Prothrombin Time 10.4 sec (9.0-12.0)
[2023-01-26 17:21] LABS: ALT 35 U/L (4-49); AST 46 U/L (17-59); African American GFR (CKD) >90 (>60 ml/min/1.73 sqM); Albumin 4.7 g/dL (3.5-5.0); Alcohol <10 mg/dL; Alkaline Phosphatase 63 U/L (38-126); Anion Gap 14 mmol/L; Blood Urea Nitrogen 32 mg/dL (9-20); Calcium 9.6 mg/dL (8.4-10.2); Carbon Dioxide 22 mmol/L (22-30); Chloride 105 mmol/L (98-107); Glucose 89 mg/dL (74-99); Non-African American GFR(CKD) 86 (>60 ml/min/1.73 sqM); Potassium 4.6 mmol/L (3.5-5.1); Sodium 141 mmol/L (137-145); Total Bilirubin 0.9 mg/dL (0.2-1.3); Total Protein 7.4 g/dL (6.3-8.2)
--- NOTE | 2023-01-26 17:21 | CT ---
EXAMINATION TYPE: CT brain cspine wo con DATE OF EXAM: 01/26/2023 COMPARISON: NONE HISTORY: trauma, fell off ladder with headache and neck pain CT DLP: 1569.2 mGycm. Automated Exposure Control for Dose Reduction was Utilized. TECHNIQUE: CT scan of the head and cervical spine are performed without contrast. FINDINGS: There is no acute intracranial hemorrhage, mass effect, or midline shift identified. The ventricles and sulci are within normal limits in size. Dempsey-white matter differentiation is maintain ed. The globes are intact and the visualized sinuses are clear. The calvarium is intact. Cervical spine is visualized in its entirety from C1 through upper thoracic levels and demonstrates s atisfactory alignment without evidence of acute fracture or dislocation. Prevertebral soft tissue ap pears within normal limits. The C1-C2 articulation is within normal limits on the coronal images. V ertebral body heights and disc space heights are maintained. Spinal canal is preserved. Axial images show somewhat prominent thyroid gland. Lung apices show no pneumothorax. IMPRESSION: 1. There is no acute fracture or dislocation evident in the cervical spine. 2. No acute intracranial hemorrhage, mass effect, or midline shift is seen.
--- NOTE | 2023-01-26 17:26 | CT ---
EXAMINATION TYPE: CT ChestAbdPelvis w con DATE OF EXAM: 01/26/2023 COMPARISON: None. HISTORY: trauma, fell off ladder CT DLP: 2302.1 mGycm. Automated Exposure Control for Dose Reduction was Utilized. CONTRAST: CT scan of the thorax, abdomen and pelvis is performed with IV Contrast, patient injected with 100 mL of Isovue 300. Trauma protocol. FINDINGS: LUNGS: Mild emphysematous change posterior upper lung with thin-walled cyst formation. There is 5 mm subpleural nodule axial image 30 in the right midlung. Similar 5 mm nodule peripheral left upper to m id lung axial image 24. Consider follow-up chest CT in one year time to reevaluate. No pleural effusi on or pneumothorax. No suspicious focal consolidation. MEDIASTINUM: There are no greater than 1 cm hilar or mediastinal lymph nodes. No cardiomegaly or pe ricardial effusion is seen. LIVER/GB: Liver is diffusely low dense consistent with fatty infiltrative hepatocellular disease. PANCREAS: No significant abnormality is seen. SPLEEN: No significant abnormality is seen. ADRENALS: No significant abnormality is seen. KIDNEYS: No significant abnormality is seen. BOWEL: Diverticula in the sigmoid colon. No CT evidence for acute diverticulitis. No suspicious small or large bowel dilatation. GENITAL ORGANS: No gross abnormality seen. LYMPH NODES: No greater than 1cm abdominal or pelvic lymph nodes are appreciated. OSSEOUS STRUCTURES: Moderate to severe disc space narrowing with vacuum disc phenomenon at L5-S1 leve l. Moderate axial joint space loss and acetabular spurring of both hips. Comminuted impacted displace d intra-articular fracture left distal radial meta-epiphysis is incidentally noted. OTHER: No significant additional abnormality is seen. IMPRESSION: No acute osseous fracture, abnormal fluid collection, or evidence of solid organ injury i n the thorax, abdomen, or pelvis.
[2023-01-26 17:33] VITALS: TEMP 97.7
[2023-01-26] MEDS ORDERED: KETAMINE HCL IN 0.9 % NACL 50 MG/5 ML SYRINGE IV ONE (17:50)
[2023-01-26 18:04] LABS: Amphetamine Screen,Urine Detected (NotDetected); Barbiturate Screen,Urine Not Detected (NotDetected); Benzodiazepines Screen,Urine Not Detected (NotDetected); Cocaine Screen,Urine Not Detected (NotDetected); Methadone Screen, Urine Not Detected (NotDetected); Opiate Screen,Urine Detected (NotDetected); Oxycodone Screen, Urine Not Detected (NotDetected); Phencyclidine Screen,Urine Not Detected (NotDetected); Tricyclic Antidepressant,Urine Not Detected (NotDetected); Urn Cannabinoid Scrn Detected (NotDetected)
[2023-01-26 18:27] VITALS: RESP 18
[2023-01-26 18:30] VITALS: BP 146/78; PULSE 98
--- NOTE | 2023-01-26 18:45 | XR ---
EXAMINATION TYPE: XR elbow complete LT DATE OF EXAM: 01/26/2023 CLINICAL HISTORY: post reduction pain after fall injury TECHNIQUE: Frontal, lateral and oblique images of the left elbow are obtained. COMPARISON: Left elbow x-ray December 22, 2020 FINDINGS: Anterior bowing of the anterior fat pad. On lateral view there is linear lucency through t he anterior lip of the olecranon. No dislocation. The overlying soft tissue appears unremarkable. IMPRESSION: Suspected nondisplaced acute intra-articular fracture of the olecranon.
--- NOTE | 2023-01-26 18:47 | XR ---
EXAMINATION TYPE: XR wrist limited LT DATE OF EXAM: 01/26/2023 CLINICAL HISTORY: Post reduction images after dislocated fracture TECHNIQUE: Frontal and lateral images of the left wrist are obtained. COMPARISON: Left wrist x-ray earlier today. FINDINGS: New overlying splint material is seen. Acute comminuted displaced intra-articular fracture of the distal radial meta-epiphysis is redemonstrated. Impaction with radial step-off of the distal f racture fragment has a similar appearance to prior study. There is improved dorsal displacement and a ngulation on the lateral view of the distal fracture fragments. IMPRESSION: As above.
[2023-01-26] MEDS ORDERED: ACET/COD 300 MG/30 MG STARTER PACK 6 TAB BTL PO STA (19:53)
[2023-01-26] MEDS ORDERED: MORPHINE SULFATE 4 MG/ML SYRINGE IVP STA (19:54)
== END 2023-01-26 20:15 | disposition home or self-care (01) ==
LOC: EC 16:07
DX: S52.572A Other intraarticular fracture of lower end of left radius, initial encounter for closed fracture (principal); F17.200 Nicotine dependence, unspecified, uncomplicated; W11.XXXA Fall on and from ladder, initial encounter; Y92.89 Other specified places as the place of occurrence of the external cause
CPT/HCPCS: 36415; 93005; 86900; 86901; 80053; 84484; 85025; 85610; 85730; 86850; 80306; 72170; 73080; 73100; 71045; 72125; 70450; 71260; 74177; 99285; 99152; 25605; 96374; 96376; G0480; J2270; Q9967; 80320

== ENCOUNTER 2023-01-31 13:36 | Emergency (ER) | payer OTHER ==
[2023-01-31] MEDS ORDERED: methylPREDNISolone SOD SUCCI 125 MG/2 ML VIAL IM ONE (14:59)
--- NOTE | 2023-01-31 15:01 | ED ---
Skin/Abscess/FB HPI - General Chief complaint: Skin/Abscess/Foreign Body Stated complaint: poison armida Time Seen by Provider: 01/31/23 14:03 Source: patient, RN notes reviewed Mode of arrival: ambulatory Limitations: no limitations - History of Present Illness Initial comments: 47-year-old male presents emergency department tingling or rashes right elbow, left arm itchy on the splint. Patient states started couple days ago. Patient states he had recent fracture of his left wrist scheduled for surgery tomorrow. Patient states he attempted to contact surgeon we call back but he figured he would come to the emergency department. Patient states he did put some calamine lotion on it. Patient states. She is unsure if he came in contact with [facility] ing. - Related Data Home Medications Medication Instructions Recorded Confirmed Acetaminophen-Codeine 300-30mg 1 - 2 tab PO Q4-6H PRN 01/28/23 01/28/23 [Tylenol w/codeine #3] Ibuprofen [Motrin] 800 mg PO Q8H PRN 01/28/23 01/28/23 Previous Rx's Medication Instructions Recorded HYDROcodone/APAP 5-325MG [[place] 1 tab PO Q6HR PRN 3 Days #12 tab 01/26/23 5-325] Triamcinolone 0.1% Cream [Kenalog 1 applicatio TOPICAL BID #30 gram 01/31/23 0.1% Cream] predniSONE 50 mg PO DAILY #5 tab 01/31/23 Allergies Allergy/AdvReac Type Severity Reaction Status Date / Time No Known Allergies Allergy Verified 01/31/23 13:56 Review of Systems ROS Statement: Those systems with pertinent positive or pertinent negative responses have been documented in the HPI. ROS Other: All systems not noted in ROS Statement are negative. 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 left wrist, current half cast w/aroldo wrap History of Any Multi-Drug Resistant Organisms: None Reported Past Surgical History: Orthopedic Surgery Additional Past Surgical History / Comment(s): niya. carpal tunnel sx 01/2023, mult. knee surgeries as child for benign tumor on growth plate Past Anesthesia/Blood Transfusion Reactions: No Reported Reaction Additional Past Anesthesia/Blood Transfusion Reaction / Comment(s): blood transfusion as a child Past Psychological History: No Psychological Hx Reported Smoking Status: Current every day smoker Past Alcohol Use History: None Reported Past Drug Use History: Marijuana General Exam Limitations: no limitations General appearance: alert, in no apparent distress Head exam: Present: atraumatic, normocephalic, normal inspection Respiratory exam: Present: normal lung sounds bilaterally. Absent: respiratory distress, wheezes, rales, rhonchi, stridor Cardiovascular Exam: Present: regular rate, normal rhythm, normal heart sounds. Absent: systolic murmur, diastolic murmur, rubs, gallop, clicks Skin exam: Present: warm, dry, intact, normal color, rash (Right elbow there is erythematous raised slightly vesicular rash and excoriations noted, left arm at the left elbow there is open sore with excoriations, bullae left proximal forearm) Course Vital Signs 01/31/23 01/31/23 13:54 15:53 Temperature 98.3 F 98.6 F Pulse Rate 72 79 Respiratory 20 16 Rate Blood Pressure 134/82 115/60 O2 Sat by Pulse 99 97 Oximetry Medical Decision Making - Medical Decision Making Was pt. sent in by a medical professional or institution (, PA, WOOD CABINET[employer]ER, urgent care, hospital, or fdc...) When possible be specific @ -No Did you speak to anyone other than the patient for history (EMS, parent, family, police, friend...)? What history was obtained from this source @ -No Did you review nursing and triage notes (agree or disagree)? Why? @ -I reviewed and agree with nursing and triage notes Were old charts reviewed (outside hosp., previous admission, EMS record, old EKG, old radiological studies, urgent care reports/EKG's, fdc records)? Report findings @ -Reviewed orthopedic splinting, x-rays Differential Diagnosis (chest pain, altered mental status, abdominal pain women, abdominal pain men, vaginal bleeding, weakness, fever, dyspnea, syncope, headache, dizziness, GI bleed, back pain, seizure, CVA, palpatations, mental health, musculoskeletal)? @ -Contact dermatitis, ALLERGIC reaction, cellulitis EKG interpreted by me (3pts min.). @ -None X-rays interpreted by me (1pt min.). @ -None done CT interpreted by me (1pt min.). @ -None done U/S interpreted by me (1pt. min.). @ -None done What testing was considered but not performed or refused? (CT, X-rays, U/S, labs)? Why? @ -None What meds were considered but not given or refused? Why? @ -None Did you discuss the management of the patient with other professionals (professionals i.e. DrChristel, PA, WOOD CABINET[employer]KER, lab, RT, psych nurse, social work faculty member, cloud security architect, teacher, flight communications officer, human services case manager)? Give summary @ -[Discussed the case with patient's surgeon Dr. Tomlinson updating given patient's rash on surgical arm patient's surgery will be postponed located for oral and topical steroids Was smoking cessation discussed for >3mins.? @ -No Was critical care preformed (if so, how long)? @ -No Were there social determinants of health that impacted care today? How? (Homelessness, low income, unemployed, alcoholism, drug addiction, transportation, low edu. Level, literacy, decrease access to med. care, group home, rehab)? @ -No Was there de-escalation of care discussed even if they declined (Discuss DNR or withdrawal of care, Hospice)? DNR status @ -No What co-morbidities impacted this encounter? (DM, HTN, Smoking, COPD, CAD, Cancer, CVA, ARF, Chemo, Hep., AIDS, mental health diagnosis, sleep apnea, morbid obesity)? @ -None Was patient admitted / discharged? Hospital course, mention meds given and route, prescriptions, significant lab abnormalities, going to OR and other pertinent info. @ -Discharge patient has contact dermatitis related to poison armida. Patient started on oral and topical steroids will continue antihistamines. Undiagnosed new problem with uncertain prognosis? @ -No Drug Therapy requiring intensive monitoring for toxicity (Heparin, Nitro, Insulin, Cardizem)? @ -No Were any procedures done? @ -No Diagnosis/symptom? @ -Poison armida Acute, or Chronic, or Acute on Chronic? @ -Acute Uncomplicated (without systemic symptoms) or Complicated (systemic symptoms)? @ -Uncomplicated Side effects of treatment? @ -No Exacerbation, Progression, or Severe Exacerbation? @ -No Poses a threat to life or bodily function? How? (Chest pain, USA, VT, pneumonia, PE, COPD, DKA, ARF, appy, cholecystitis, CVA, Diverticulitis, Homicidal, Suicidal, threat to staff... and all critical care pts) @ -No Disposition Clinical Impression: Poison armida dermatitis Disposition: HOME SELF-CARE Condition: Stable Instructions (If sedation given, give patient instructions): Poison Armida (ED) Additional Instructions: Prescriptions were sent to [facility] on [address] Please return to the Emergency Department if symptoms worsen or any other concerns. Prescriptions: Triamcinolone 0.1% Cream [Kenalog 0.1% Cream] 1 applicatio TOPICAL BID #30 gram predniSONE 50 mg PO DAILY #5 tab Is patient prescribed a controlled substance at d/c from ED?: No Referrals: None,Stated [Primary Care Provider] - 1-2 days Time of Disposition: 15:01
[2023-01-31 15:54] VITALS: BP 115/60; PULSE 79; RESP 16; TEMP 98.6
== END 2023-01-31 15:54 | disposition home or self-care (01) ==
LOC: EC 13:36
DX: L23.7 Allergic contact dermatitis due to plants, except food (principal); F17.200 Nicotine dependence, unspecified, uncomplicated; F12.90 Cannabis use, unspecified, uncomplicated
CPT/HCPCS: 99283; 96372; J2930

== ENCOUNTER 2023-02-09 10:40 | Day surgery (SDC) | payer OTHER ==
[2023-02-04 09:58] VITALS: BMI 31.5
[~2023-02-09 10:40] MED LIST changes: -DEXAMETHASONE SOD PHOSPHATE 4 MG/ML 1 ML VIAL IV ONE; -LACTATED RINGERS 1,000 ML IV SCH; -MIDAZOLAM 2 MG/2 ML VIAL IV PRN
[2023-02-09 11:15] VITALS: TEMP 98.3
[2023-02-09] MEDS: LACTATED RINGERS 1,000 ML IV SCH ×2 (11:23→14:35)
[2023-02-09] MEDS ORDERED: MIDAZOLAM 2 MG/2 ML VIAL IVP ONE ×2 (11:49→11:50)
[2023-02-09] MEDS ORDERED: fentaNYL (PF) 50 MCG/ML 2 ML AMP IVP ONE (11:50)
[2023-02-09 12:17] VITALS: RESP 16
--- NOTE | 2023-02-09 12:45 | P.ANPRN ---
Procedure Note - Anesthesia - Nerve Block Performed Left Supraclavicular Time Out Performed: Yes (:49) Date of Procedure: 02/09/23 Procedure Start Time: :49 Procedure Stop Time: :54 Location of Patient: PreOp Indication: Acute Post-Operative Pain, Requested by Surgeon (Dr Tomlinson) Sedation Type: Sedate with meaningful contact maintained Preparation: Sterile Prep Position: Supine Catheter: None Needle Types: Pajunk Needle Gauge: Other (see comment) (22g) Ultrasound used to visualize needle placement: Yes Ultrasound used to observe medication spread: Yes Injectate: 0.5% Ropivacaine (see comment for volume) (20cc + Decadron 4mg) Blood Aspirated: No Pain Paresthesia on Injection Noted: No Resistance on Injection: Normal Image Stored and Saved: Yes Events: Uneventful and Well Tolerated
[2023-02-09] MEDS ORDERED: DEXAMETHASONE SOD PHOSPHATE 4 MG/ML 1 ML VIAL ONE (12:56)
[2023-02-09] MEDS ORDERED: ROPIVACAINE 5 MG/ML 30 ML VIAL ONE (12:56)
[2023-02-09] MEDS ORDERED: SUCCINYLCHOLINE CHLORIDE 200 MG/10 ML VIAL IV ONE (12:56)
[2023-02-09] MEDS ORDERED: fentaNYL (PF) 50 MCG/ML 2 ML AMP ONE (12:56)
[2023-02-09] MEDS ORDERED: LIDOCAINE 2% INJ 20 MG/ML (2 ML VIAL) ONE (12:56)
[2023-02-09] MEDS ORDERED: MIDAZOLAM 2 MG/2 ML VIAL ONE (12:56)
[2023-02-09] MEDS ORDERED: HYDROmorphone (PF) 1 MG/ML ONE (12:56)
[2023-02-09] MEDS ORDERED: PROPOFOL 10 MG/ML 20 ML VIAL IV ONE (12:56)
[2023-02-09 15:22] VITALS: BP 124/87; PULSE 75
--- NOTE | 2023-02-10 10:48 | P.OP ---
Date of Procedure: 02/09/23 Preoperative Diagnosis: Left distal radius fracture, intraarticular 4 part Left ulnar styloid fracture Postoperative Diagnosis: same Procedure(s) Performed: Left distal radius open reduction internal fixation Implants: Skeletal dynamics, dorsal spanning plate Anesthesia: dania PEREIRA Surgeon: Kavya Tomlinson Pharmacovigilance Scientist #1: Yessi Terrell Estimated Blood Loss (ml): 20 Condition: stable Disposition: PACU Indications for Procedure: Hi fell off of a roof on 01/26/23 sustaining a distal radius and ulna fracture. He unfortunately developed a poison young reaction and fracture blisters which delayed his fixation surgery. The blisters and swelling have s ubsided. We will proceed with fixation today. Given the comminuted pattern and distal fracture, we will use a dorsal spanning plate. Description of Procedure: The patient, operative extremity, and procedure were identified in the preop holding area. After informed consent was obtained, the anesthesia team performed a regional block. The patient was then brought back to the operating room where the extremity was prepped and draped in normal sterile fashion with a tourniquet on the patients brachium. Skilled assistance was needed for reduction and application of hardware. A formal timeout was performed and the tourniquet was inflated to 250mmHg. A closed reduction was performed with acceptable alignment. Attention was first turned to the second metacarpal. A longitudinal incision was made over the metacarpal. Dissection was taken down to the extensor tendons which were mobilized and protected. The ECRL insertion was identified and cleared. A freer was inserted in a retrograde fashion between the ECRL and ECRB and slid across the wrist into the forearm. The oblong hole of the distal section was filled with a cortical screw. A longitudinal incision was made over the proximal aspect of the plate. Dissection was carried down to the EPB and APL muscles which were mobilized. The radial sensory nerve was identified and protected. The extensor tendons were mobilized and the plate was found to be laying directly on the radial shaft. The oblong hole was then filled with a nonlocking screw loosely. Traction was applied to reduce the fracture and the proximal screw was tightened. The reduction was accessed on orthogonal views and was found to be adequate. The remaining screw holes were filled with locking screws. The DRUJ was tested and was stable. Tourniquet was let down and hemostasis was achieved. Wounds were closed in a layered fashion with 3.0 vicryl and 4.0 monocryl. Wound was dressed with adaptic, gauze, cast padding, and a volar splint. Patient was aroused by the anesthesia team and brought back to PACU in stable condition. The contract administrative assistant was necessary to protect neurovascular structures during the exposure and to hold the reduction while the fixation was secured.
== END 2023-02-09 15:43 | disposition home or self-care (01) ==
LOC: OR 10:40
PROVIDERS: ATTEND Orthopaedic Surgery Hand Surgery
DX: S52.572A Other intraarticular fracture of lower end of left radius, initial encounter for closed fracture (principal); S52.612A Displaced fracture of left ulna styloid process, initial encounter for closed fracture; F17.210 Nicotine dependence, cigarettes, uncomplicated; Z79.899 Other long term (current) drug therapy; Z98.890 Other specified postprocedural states
CPT/HCPCS: 25608; 26615; J2250; J0330; J1100; J0690; J2405; J3010; J1170; J2795; J2704; J2001; 64415

== ENCOUNTER 2023-05-10 12:05 | Day surgery (SDC) | payer OTHER ==
[2023-05-04 11:52] VITALS: BMI 30.1
[2023-05-10 12:29] VITALS: RESP 16; TEMP 98.1
[2023-05-10] MEDS ORDERED: LACTATED RINGERS 1,000 ML IV ONE (12:36)
[2023-05-10] MEDS ORDERED: ONDANSETRON 4 MG/2 ML VIAL ONE (12:38)
[2023-05-10] MEDS ORDERED: ONDANSETRON 4 MG/2 ML VIAL IVP ONE (12:40)
[2023-05-10] MEDS ORDERED: DEXAMETHASONE SOD PHOSPHATE 4 MG/ML 1 ML VIAL IVP ONE (12:40)
[2023-05-10] MEDS ORDERED: PROPOFOL 10 MG/ML 20 ML VIAL IV ONE (13:44)
[2023-05-10] MEDS ORDERED: fentaNYL (PF) 50 MCG/ML 2 ML AMP ONE (13:44)
[2023-05-10] MEDS ORDERED: MIDAZOLAM 2 MG/2 ML VIAL ONE (13:44)
[2023-05-10] MEDS ORDERED: BUPIVACAINE (PF) 0.5% 30 ML VIAL SQ ONE (14:00)
[2023-05-10] MEDS ORDERED: LIDOCAINE 2%-EPI 1:100,000 20 ML VIAL SQ ONE (14:00)
[2023-05-10 14:56] VITALS: BP 119/72; PULSE 90
--- NOTE | 2023-05-11 16:17 | P.OP ---
Date of Procedure: 05/10/23 Preoperative Diagnosis: Left wrist painful hardware, left distal radius fracture Postoperative Diagnosis: same Procedure(s) Performed: 1. Left wrist hardware removal 2. Left wrist extensor tendon tenolysis Anesthesia: KELLI, local Surgeon: Kavya Tomlinson Estimated Blood Loss (ml): 2 Condition: stable Disposition: PACU Indications for Procedure: Hi is a 48-year-old male who fell off of a roof sustaining a comminuted distal radius fracture on the left. He underwent a ORIF with a bridge plate on 02/09/2023. On follow-up x-rays he still has some healing left to do however he is been working hard with this arm and felt a pop in the metacarpal region. X- rays demonstrate a possible loosening of the plate around the metacarpal. We have decided to remove the bridge plate and continue healing in a cast for another 2 weeks. Description of Procedure: Patient, operative extremity, and procedure were identified in the preop holding area. After informed consent was obtained the patient was brought back to the operating room or local block was performed with 1% lidocaine with epinephrine and half percent Marcaine. After this the extremity was prepped and draped in normal sterile fashion with a tourniquet along the patient's brachium. Once a formal timeout was performed the tourniquet was inflated. Attention was first turned to the proximal wound. The previous incision was reopened. Dissection was carried down to the muscles of the first dorsal compartment. They were adhered to the extensor tendons of the second and third compartment. A tenodesis was performed. Dissection was carried down to the plate itself. There was abundant scar tissue here which was carefully lifted. The screws of the plate were accessed and removed. Attention was then turned to the distal aspect of the wound. The previous incision here was also reopened. Dissection was carried down to the extensor tendons which were carefully lifted away from the plate. EIP and EDC of the index finger are also quite scarred and a tenodesis was performed for the use tendons as well. The cortical screws found to be loose this was removed remaining locking screws were also removed. Plate was then lifted and removed in an anterograde fashion from the distal wound. Additional scar tissue and fibrinous material along the metacarpal was removed with a Luis. Final fluoroscopic views revealed complete removal of the hardware. Hemostasis was achieved. Wound was closed in a layered fashion with 4-0 Monocryl skin glue and Steri-Strips. Wound was dressed with Adaptic 4 x 4's web roll and patient was placed in a volar wrist splint.
== END 2023-05-10 15:13 | disposition home or self-care (01) ==
LOC: OR 12:05
PROVIDERS: ATTEND Orthopaedic Surgery Hand Surgery
DX: S52.502D Unspecified fracture of the lower end of left radius, subsequent encounter for closed fracture with routine healing (principal); W13.2XXD Fall from, out of or through roof, subsequent encounter; G56.02 Carpal tunnel syndrome, left upper limb; Z79.899 Other long term (current) drug therapy
CPT/HCPCS: 20680; 25295; J2250; J1100; J0690; J2405; J3010; J2704; J0665

== ENCOUNTER → 2023-06-21 | Outpatient (CLI) | payer OTHER ==
--- NOTE | 2023-06-21 08:49 | CT ---
EXAMINATION TYPE: CT wrist LT wo con CT DLP: 120.70 mGycm, Automated exposure control for dose reduction was used. DATE OF EXAM: 06/21/2023 8:36 AM COMPARISON: Left wrist radiograph 01/26/2023 CLINICAL INDICATION:Male, 48 years old with history of S52.512D FX RADIAL STYLOID; PHH, Radial styloi d fx not healing properly after plate removal TECHNIQUE: Axial images were obtained of the left wrist without the use of IV contrast. Additional c oronal and sagittal reformatted images and soft tissue and bone window were obtained for review. FINDINGS: Postsurgical changes from prior fixation plate involving the proximal radius and second met acarpal. There is callus formation with residual comminuted fracture line still visible involving the distal radius with extension to the radiocarpal joint. Partial healing changes identified. No acute fracture or dislocation. No significant soft tissue swelling. No sizable joint effusion. IMPRESSION: 1. Incompletely healed distal radius fracture with comminuted fracture lines still visible. 2. Postsurgical changes from prior fixation hardware involving the distal radius and second metacarp al.
== END | disposition home or self-care (01) ==
LOC: RADCTMAIN 08:16
PROVIDERS: ATTEND Orthopaedic Surgery Hand Surgery
DX: S52.512D Displaced fracture of left radial styloid process, subsequent encounter for closed fracture with routine healing (principal); M25.532 Pain in left wrist; Z48.89 Encounter for other specified surgical aftercare; Z98.890 Other specified postprocedural states

== ENCOUNTER 2023-08-23 20:51 | Inpatient (IN) | payer OTHER ==
--- NOTE | 2023-08-23 22:01 | ED ---
Skin/Abscess/FB HPI - General Source: patient, RN notes reviewed Mode of arrival: ambulatory Limitations: no limitations <Yessy Pritchard - Last Filed: 08/23/23 22:00> <Lola Lange - Last Filed: 08/24/23 02:52> - General Chief complaint: Skin/Abscess/Foreign Body Stated complaint: left finger infection Time Seen by Provider: 08/23/23 22:00 - History of Present Illness Initial comments: Patient is a 48-year-old male presented ER with chief complaint of finger infection. Patient states that he was recently treated by Dr. Tomlinson with antibiotics over a week ago. Patient states he went on vacation and a couple of days ago to his finger fell off. Patient doesn't state that it is draining. Patient denies any fevers or chills. (Yessy Pritchard) 48-year-old male presenting with chief complaint of infection to the left middle finger. 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 Patient also has history of partial amputation to the left little finger. Patient state s that he was recently on vacation in taking oral antibiotics prescribed to him by Dr. Tomlinson. He states that while he was on vacation he had a large amount of purulent discharge from the affected finger. He states that 2-3 days ago the tip of the finger fell off. He states that the finger is no longer draining. He admits to pain and swelling. No fevers or chills. No nausea or vomiting. (Lola Lange) - Related Data Home Medications Medication Instructions Recorded Confirmed No Known Home Medications 05/04/23 05/10/23 Allergies Allergy/AdvReac Type Severity Reaction Status Date / Time No Known Allergies Allergy Verified 08/23/23 21:11 Review of Systems ROS Other: All systems not noted in ROS Statement are negative. <Yessy Pritchard - Last Filed: 08/23/23 22:00> ROS Other: All systems not noted in ROS Statement are negative. <Lola Lange - Last Filed: 08/24/23 02:52> ROS Statement: Those systems with pertinent positive or pertinent negative responses have been documented in the HPI. 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 left wrist History of Any Multi-Drug Resistant Organisms: None Reported Past Surgical History: Orthopedic Surgery Additional Past Surgical History / Comment(s): niya. carpal tunnel rep., left wrist surg. for fx, mult. knee surgeries as child for benign tumor on growth plate Past Anesthesia/Blood Transfusion Reactions: No Reported Reaction Additional Past Anesthesia/Blood Transfusion Reaction / Comment(s): blood transfusion as a child Past Psychological History: No Psychological Hx Reported Smoking Status: Current every day smoker Past Alcohol Use History: None Reported Past Drug Use History: Marijuana <Yessy Pritchard - Last Filed: 08/23/23 22:00> General Exam Limitations: no limitations <Yessy Pritchard - Last Filed: 08/23/23 22:00> Limitations: no limitations General appearance: alert, in no apparent distress Head exam: Present: atraumatic, normocephalic, normal inspection Eye exam: Present: normal appearance, EOMI Neck exam: Present: normal inspection, full ROM Respiratory exam: Absent: respiratory distress Extremities exam: Present: other (Tenderness and swelling to the left middle finger) Neurological exam: Present: alert, oriented X3 Psychiatric exam: Present: normal affect, normal mood Skin exam: Present: warm, dry. Absent: intact <Lola Lange - Last Filed: 08/24/23 02:52> - General Exam Comments Initial Comments: Visual Physical Exam Vital signs reviewed General: Well-appearing, nontoxic, no acute distress. Head: Normocephalic, atraumatic Eyes: PERRLA, EOMI ENT: Airway patent Chest: Nonlabored breathing Skin: No visual rash, normal skin tone Neuro: Alert and oriented 3 Musculoskeletal: No gross abnormalities (Yessy Pritchard) Course Vital Signs 08/23/23 08/24/23 21:09 01:36 Temperature 99.3 F Pulse Rate 99 70 Respiratory 16 16 Rate Blood Pressure 152/95 128/83 O2 Sat by Pulse 99 95 Oximetry Medical Decision Making <Yessy Pritchard - Last Filed: 08/23/23 22:00> - Lab Data Result diagrams: 08/24/23 00:28 08/24/23 00:28 <Lola Lange - Last Filed: 08/24/23 02:52> - Medical Decision Making I performed the quick note portion of the exam. Electronically signed by Yessy Pritchard PA-C (Yessy Pritchard) Was pt. sent in by a medical professional or institution ([facility], [employer], urgent care, hospital, or care home...) When possible be specific @ -No Did you speak to anyone other than the patient for history (EMS, parent, family, police, friend...)? What history was obtained from this source @ -No Did you review nursing and triage notes (agree or disagree)? Why? @ -I reviewed and agree with nursing and triage notes Were old charts reviewed (outside hosp., previous admission, EMS record, old EKG, old radiological studies, urgent care reports/EKG's, care home records)? Report findings @ -No old charts were reviewed Differential Diagnosis (chest pain, altered mental status, abdominal pain women, abdominal pain men, vaginal bleeding, weakness, fever, dyspnea, syncope, headache, dizziness, GI bleed, back pain, seizure, CVA, palpatations, mental health, musculoskeletal)? @ -Differential Musculoskeletal Muscular strain, contusion, ligament sprain, fracture, arthritis, septic arth ritis, bursitis, cellulitis, muscle spasm, nerve compression, DVT, arterial occlusion, herpes zoster, electrolyte abnormality, tumor.... This is not meant to be in all inclusive list EKG interpreted by me (3pts min.). @ -As above X-rays interpreted by me (1pt min.). @ -Amputation of the long finger, presumably at the DIP. Eversion of the long finger middle phalanx distal metaphysis concerning for severe osteomyelitis. Overlying soft tissue swelling. CT interpreted by me (1pt min.). @ -None done U/S interpreted by me (1pt. min.). @ -None done What testing was considered but not performed or refused? (CT, X-rays, U/S, labs )? Why? @ -None What meds were considered but not given or refused? Why? @ -None Did you discuss the management of the patient with other professionals (professionals i.e. [facility], [employer], lab, RT, psych nurse, social problems specialist, web site administrator, teacher, railroad police officer, renal case manager)? Give summary @ -I spoke with Dr. Manning who accepted admission Was smoking cessation discussed for >3mins.? @ -No Was critical care preformed (if so, how long)? @ -No Were there social determinants of health that impacted care today? How? (H omelessness, low income, unemployed, alcoholism, drug addiction, transportation, low edu. Level, literacy, decrease access to med. care, half-way, rehab)? @ -No Was there de-escalation of care discussed even if they declined (Discuss DNR or withdrawal of care, Hospice)? DNR status @ -No What co-morbidities impacted this encounter? (DM, HTN, Smoking, COPD, CAD, Cancer, CVA, ARF, Chemo, Hep., AIDS, mental health diagnosis, sleep apnea, morbid obesity)? @ -None Was patient admitted / discharged? Hospital course, mention meds given and route, prescriptions, significant lab abnormalities, going to OR and other pertinent info. @ -48-year-old male with history of osteomyelitis presenting with chief complaint of left middle finger pain and swelling. History and physical exam were conducted. Lab work is grossly unremarkable. Finger x-ray is suggestive of severe osteomyelitis. Patient is started on vancomycin and ceftriaxone. He will be admitted with consult to orthopedics and infectious disease. I discussed this case with my attending Dr. Broussard Undiagnosed new problem with uncertain prognosis? @ -No Drug Therapy requiring intensive monitoring for toxicity (Heparin, Nitro, Insulin, Cardizem)? @ -No Were any procedures done? @ -No Diagnosis/symptom? @ -Osteomyelitis Acute, or Chronic, or Acute on Chronic? @ Acute Uncomplicated (without systemic symptoms) or Complicated (systemic symptoms)? @ -Complicated Side effects of treatment? @ -No Exacerbation, Progression, or Severe Exacerbation? @ -No Poses a threat to life or bodily function? How? (Chest pain, [place], [place], pneumonia, PE, COPD, DKA, ARF, appy, cholecystitis, CVA, Diverticulitis, Homicidal, Suicidal, threat to staff... and all critical care pts) @ -Yes (Lola Lange) - Lab Data Lab Results 08/24/23 08/24/23 08/24/23 Range/Units 00:28 00:28 00:28 WBC 6.2 (3.8-10.6) k/uL RBC 4.47 (4.30-5.90) m/uL Hgb 13.7 (13.0-17.5) gm/dL Hct 41.5 (39.0-53.0) % MCV 92.7 (80.0-100.0) fL MCH 30.6 (25.0-35.0) pg MCHC 33.0 (31.0-37.0) g/dL RDW 13.2 (11.5-15.5) % Plt Count 201 (150-450) k/uL MPV 10.3 Neutrophils % 59 % Lymphocytes % 25 % Monocytes % 7 % Eosinophils % 5 % Basophils % 1 % Neutrophils # 3.7 (1.3-7.7) k/uL Lymphocytes # 1.6 (1.0-4.8) k/uL Monocytes # 0.4 (0-1.0) k/uL Eosinophils # 0.3 (0-0.7) k/uL Basophils # 0.1 (0-0.2) k/uL Sodium 139 (137-145) mmol/L Potassium 4.1 (3.5-5.1) mmol/L Chloride 106 (98-107) mmol/L Carbon Dioxide 24 (22-30) mmol/L Anion Gap 9 mmol/L BUN 18 (9-20) mg/dL Creatinine 0.75 (0.66-1.25) mg/dL Est GFR (CKD-EPI)AfAm >90 (>60 ml/min/1.73 sqM) Est GFR (CKD-EPI)NonAf >90 (>60 ml/min/1.73 sqM) Glucose 88 (74-99) mg/dL Plasma Lactic Acid Floyd 0.9 (0.7-2.0) mmol/L Calcium 8.3 L (8.4-10.2) mg/dL Total Bilirubin 0.4 (0.2-1.3) mg/dL AST 31 (17-59) U/L ALT 14 (4-49) U/L Alkaline Phosphatase 67 (38-126) U/L Total Protein 6.3 (6.3-8.2) g/dL Albumin 3.9 (3.5-5.0) g/dL Disposition <Yessy Pritchard - Last Filed: 08/23/23 22:00> Time of Disposition: 01:28 <Lola Lange - Last Filed: 08/24/23 02:52> Clinical Impression: Osteomyelitis Disposition: ADMITTED IP TO THIS HOSP Condition: Fair Referrals: None,Stated [Primary Care Provider] - 1-2 days
--- NOTE | 2023-08-23 22:29 | XR ---
EXAM: XR Left Fingers, 2 or More Views CLINICAL HISTORY: ITS.REASON XR Reason: infection TECHNIQUE: Frontal, lateral and oblique views of the fingers of the left hand. COMPARISON: No relevant prior studies available. FINDINGS: Bones/joints: Amputation of the long finger, presumably at the DIP. No acute fracture. No dislocation. Soft tissues: Erosion of the long finger middle phalanx distal metaphysis, concerning for severe osteomyelitis. Overlying soft tissue swelling. No radiopaque foreign body. IMPRESSION: 1. Amputation of the long finger, presumably at the DIP. 2. Erosion of the long finger middle phalanx distal metaphysis, concerning for severe osteomyelitis. Overlying soft tissue swelling.
[2023-08-24 00:47] LABS: ALT 14 U/L (4-49); AST 31 U/L (17-59); African American GFR (CKD) >90 (>60 ml/min/1.73 sqM); Albumin 3.9 g/dL (3.5-5.0); Alkaline Phosphatase 67 U/L (38-126); Anion Gap 9 mmol/L; Blood Urea Nitrogen 18 mg/dL (9-20); Calcium 8.3 mg/dL (8.4-10.2); Carbon Dioxide 24 mmol/L (22-30); Chloride 106 mmol/L (98-107); Glucose 88 mg/dL (74-99); Non-African American GFR(CKD) >90 (>60 ml/min/1.73 sqM); Potassium 4.1 mmol/L (3.5-5.1); Sodium 139 mmol/L (137-145); Total Bilirubin 0.4 mg/dL (0.2-1.3); Total Protein 6.3 g/dL (6.3-8.2)
[2023-08-24] MEDS ORDERED: VANCOMYCIN IV PER PHARMACY 1 EACH MISC MISCELLANE PRN (00:48)
[2023-08-24] MEDS ORDERED: NALOXONE 0.4 MG/ML 1 ML VIAL IV PRN (00:51)
[2023-08-24] MEDS ORDERED: VANCOMYCIN 1,500 MG in SODIUM CHLORIDE 0.9% 500 ML 500 ML IVPB STA (00:53)
[2023-08-24 01:00] LABS: Basophils # (A) 0.1 k/uL (0-0.2); Basophils % (A) 1 %; Eosinophils # (A) 0.3 k/uL (0-0.7); Eosinophils % (A) 5 %; HCT 41.5 % (39.0-53.0); HGB 13.7 gm/dL (13.0-17.5); Lymphocytes # (A) 1.6 k/uL (1.0-4.8); Lymphocytes % (A) 25 %; MCH 30.6 pg (25.0-35.0); MCV 92.7 fL (80.0-100.0); Mean Platelet Volume 10.3; Monocytes # (A) 0.4 k/uL (0-1.0); Monocytes % (A) 7 %; Neutrophils # (A) 3.7 k/uL (1.3-7.7); Neutrophils % (A) 59 %; Platelet Count 201 k/uL (150-450); RBC 4.47 m/uL (4.30-5.90); RDW 13.2 % (11.5-15.5); WBC 6.2 k/uL (3.8-10.6)
[2023-08-24] MEDS: SODIUM CHLORIDE 0.9% 1,000 ML IV SCH ×2 (01:00→13:37)
[2023-08-24] MEDS: VANCOMYCIN 1,500 MG in SODIUM CHLORIDE 0.9% 500 ML 500 ML IVPB SCH ×2 (09:16→18:16)
[2023-08-24] MEDS: KETOROLAC 15 MG/ML 1 ML VIAL IVP PRN ×2 (11:22→18:17)
--- NOTE | 2023-08-24 12:20 | P.HPIM ---
History of Present Illness H&P Date: 08/24/23 History of present illness; patient is a 48-year-old gentleman with no significa nt past medical history presented to the ER for left middle finger infection. Patient history of prior osteomyelitis and was recently given antibiotics by Dr carlin. Patient was on vacation when he noticed that his middle finger was getting swollen and red, there was purulent discharge from the tip of the finger, it was followed by the tip of the finger sloughing off. There was no complain fever or chills. No complain of weakness and lethargy. Patient stated the drainage from the finger. Patient daughter told the patient, to come to the ER Initial lab work done in the ER showed WBC 6.2, hemoglobin 13.7, platelet count 201, sodium 139 potassium 4.1, BUNs 18, creatinine 0.75, X-ray left finger showed erosion of the longer finger middle phalanx distal metaphysis concerning for severe osteomyelitis Patient admitted to medicine service. REVIEW OF SYSTEMS: CONSTITUTIONAL: No fever, no malaise, no fatigue. HEENT: No recent visual problems or hearing problems. Denied any sore throat. CARDIOVASCULAR: No chest pain, orthopnea, PND, no palpitations, no syncope. PULMONARY: No shortness of breath, no cough, no hemoptysis. GASTROINTESTINAL: No diarrhea, no nausea, no vomiting, no abdominal pain. NEUROLOGICAL: No headaches, no weakness, no numbness. HEMATOLOGICAL: Denies any bleeding or petechiae. GENITOURINARY: Denies any burning micturition, frequency, or urgency. MUSCULOSKELETAL/RHEUMATOLOGICAL: As mentioned above ENDOCRINE: Denies any polyuria or polydipsia. The rest of the 14-point review of systems is negative. PHYSICAL EXAMINATION: GENERAL: The patient is alert and oriented x3, not in any acute distress. Well developed, well nourished. HEENT: Pupils are round and equally reacting to light. EOMI. No scleral icterus. No conjunctival pallor. Normocephalic, atraumatic. No pharyngeal erythema. No thyromegaly. CARDIOVASCULAR: S1 and S2 present. No murmurs, rubs, or gallops. PULMONARY: Chest is clear to auscultation, no wheezing or crackles. ABDOMEN: Soft, nontender, nondistended, normoactive bowel sounds. No palpable organomegaly. MUSCULOSKELETAL: Ulcer at the tip of the middle phalanx of the middle finger EXTREMITIES: No cyanosis, clubbing, or pedal edema. NEUROLOGICAL: Gross neurological examination did not reveal any focal deficits. SKIN: No rashes. Assessment and plan Acute osteomyelitis of middle phalanx of middle finger of left hand Monitor vital signs Monitor CBC Monitor CMP Follow-up on wound cultures Continue wound care Continue IV Rocephin and vancomycin Continue pain management Consult ID Consult orthopedics Labs and medication were reviewed.. Continue same treatment. Continue with symptomatic treatment. Resume home medication. Monitor labs and vitals. DVT and GI prophylaxis. Further recommendations as per clinical course of the patient Dictation was produced using [employer] dictation software. please excuse any gram matical, word or spelling errors. 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 left wrist History of Any Multi-Drug Resistant Organisms: None Reported Past Surgical History: Orthopedic Surgery Additional Past Surgical History / Comment(s): niya. carpal tunnel rep., left wrist surg. for fx, mult. knee surgeries as child for benign tumor on growth plate Past Anesthesia/Blood Transfusion Reactions: No Reported Reaction Additional Past Anesthesia/Blood Transfusion Reaction / Comment(s): blood transfusion as a child Smoking Status: Former smoker Medications and Allergies Home Medications Medication Instructions Recorded Confirmed Type No Known Home Medications 05/04/23 08/24/23 History Allergies Allergy/AdvReac Type Severity Reaction Status Date / Time No Known Allergies Allergy Verified 08/24/23 06:29 Physical Exam Vitals: Vital Signs Temp Pulse Resp BP Pulse Ox 08/24/23 09:20 75 16 127/54 98 08/24/23 07:28 68 16 126/85 98 08/24/23 06:13 81 16 126/85 98 08/24/23 04:41 98.4 F 78 16 124/77 98 08/24/23 03:16 98.1 F 72 16 138/95 99 08/24/23 01:36 70 16 128/83 95 08/23/23 21:09 99.3 F 99 16 152/95 99 Intake and Output 08/23/23 08/24/23 08/24/23 22:59 06:59 14:59 Other: Weight 95.254 kg 95.254 kg Results CBC & Chem 7: 08/24/23 00:28 08/24/23 00:28 Labs: Abnormal Lab Results - Last 24 Hours (Table) 08/24/23 Range/Units 00:28 Calcium 8.3 L (8.4-10.2) mg/dL
[2023-08-24] MEDS: HYDROmorphone 1 MG/ML 1 ML SYRINGE IVP PRN (15:12)
--- NOTE | 2023-08-24 22:57 | P.CONS ---
History of Present Illness - Reason for Consult Consult date: 08/24/23 Left middle finger osteomyelitis Requesting physician: Lola Lange - Chief Complaint Left middle finger wound and drainage x few days - History of Present Illness Patient is a 48-year-old male with a past medical history significant for left middle finger osteomyelitis in this patient who is status post left middle finger distal phalanx amputation on 10/27/2022 culture positive for MSSA along with anaerobes treated with the cefazolin and Flagyl patient mention he did well and did have healing of his wound after surgery however the patient now presenting back to the hospital last night concerning for drainage from the left middle finger distal phalanx amputation site apparently started few days before presentation to the hospital and the patient has been evaluated by her orthopedic surgeon for the same condition and has been treated with an oral ant ibiotic therapy patient is not very clear about the name of that antibiotic and that has been documented on the home medication by the nursing staff patient denies high-grade fever or any chills has been complaining of pain to the left middle finger tip to be more of a dull aching to throbbing moderate intensity without any radiation with associated swelling redness and some drainage, patient on presentation to the hospital did have a low-grade fever of 99.3 F, patient did have a white count 6.2 creatinine 0.75 liver enzymes are normal patient did have x-ray of the finger which shows amputation of the middle finger presumably at the DIP erosion of the middle phalanx distal metaphysis concerning for osteomyelitis patient was started on vancomycin and Rocephin infectious disease was consulted for further management of antibiotic therapy Review of Systems Positive point and negatives has been mentioned in the HPI, complete review of systems was performed and all other systems are negative 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 left wrist History of Any Multi-Drug Resistant Organisms: None Reported Past Surgical History: Orthopedic Surgery Additional Past Surgical History / Comment(s): niya. carpal tunnel rep., left wrist surg. for fx, mult. knee surgeries as child for benign tumor on growth plate Past Anesthesia/Blood Transfusion Reactions: No Reported Reaction Additional Past Anesthesia/Blood Transfusion Reaction / Comm: blood transfusion as a child Smoking Status: Former smoker Medications and Allergies Home Medications Medication Instructions Recorded Confirmed Type Cephalexin [Keflex] 500 mg PO Q6HR 14 Days #56 cap 08/26/23 Rx Allergies Allergy/AdvReac Type Severity Reaction Status Date / Time No Known Allergies Allergy Verified 08/24/23 06:29 Physical Exam Vitals: Vital Signs Temp Pulse Resp BP Pulse Ox 08/24/23 09:20 75 16 127/54 98 08/24/23 07:28 68 16 126/85 98 08/24/23 06:13 81 16 126/85 98 08/24/23 04:41 98.4 F 78 16 124/77 98 08/24/23 03:16 98.1 F 72 16 138/95 99 08/24/23 01:36 70 16 128/83 95 08/23/23 21:09 99.3 F 99 16 152/95 99 Intake and Output 08/23/23 08/24/23 08/24/23 22:59 06:59 14:59 Other: Weight 95.254 kg 95.254 kg GENERAL DESCRIPTION: Middle-aged male lying in bed, no distress. No tachypnea or accessory muscle of respiration use. HEENT: Shows Pallor , no scleral icterus. Oral mucous membrane is dry. No phar yngeal erythema or thrush NECK: Trachea central, no thyromegaly. LUNGS: Unlabored breathing. Clear to auscultation anteriorly. No wheeze or crackle. HEART: S1, S2, regular rate and rhythm. No loud murmur ABDOMEN: Soft, no tenderness , guarding or rigidity, no organomegaly EXTREMITIES: Left middle finger wound in this patient who did have a distal phalanx amputation this have some dry crusted area minimal swelling no drainage was noticed SKIN: No rash, no masses palpable. NEUROLOGICAL: The patient is awake, alert, oriented x3, mood and affect normal. Results CBC & Chem 7: 08/25/23 08:38 08/26/23 08:49 Labs: Abnormal Lab Results - Last 24 Hours (Table) 08/24/23 Range/Units 00:28 Calcium 8.3 L (8.4-10.2) mg/dL Assessment and Plan (1) Finger osteomyelitis, left Status: Acute Code(s): M86.9 - OSTEOMYELITIS, UNSPECIFIED SNOMED Code(s): 8029454840583991 (2) Open wound of left middle finger Status: Acute Code(s): S61.203A - UNSP OPEN WOUND OF L MID FINGER W/O DAMAGE TO NAIL, INIT SNOMED Code(s): 87535869485392185 Plan: 1patient presented to hospital with increasing pain and swelling and drainage to the left middle finger in this patient who did have a previous history of middle fingertip osteomyelitis requiring amputation of the distal phalanx culture positive for MSSA that was back in October 2022 for which the patient has completed antibiotic and the patient did have overall healing of his wound now presenting to hospital almost 10 months later with reopening of the wound and drainage failing outpatient oral antibiotic therapy with abnormal x-ray concerning for osteomyelitis 2-we will wait for orthopedic surgery evaluation for debridement and deep cu lture 3-we will empirically cover with vancomycin pharmacy to dose while watching his kidney function closely along with Rocephin 4-check inflammatory markers We will follow on clinical condition and cultures to further adjust medication if needed Thank you for this consultation we will follow the patient along with you Dictation was produced using [employer] dictation software. please excuse any gram matical, word or spelling errors. Time with Patient: Greater than 30
[2023-08-25] MEDS: VANCOMYCIN 1,500 MG in SODIUM CHLORIDE 0.9% 500 ML 500 ML IVPB SCH ×3 (04:38→18:16)
--- NOTE | 2023-08-25 08:50 | P.CNOR ---
History of Present Illness - HPI Consult date: 08/25/23 Consult reason: other (Left middle finger infection) History of present illness: The patient is a 48 y/o male well known to our practice who presented to the Emergency Department at [facility] two days ago for a worsening infection to his left middle finger. He was started on IV antibiotics. He states the finger has improved greatly since admission. The patient was started on Keflex in our office on 08/04/2023 for a small draining wound to the left middle finger. He went on vacation and he states the finger opened up while in the ocean most of the day. The wound continued to worsen and he presented to the ER on 08/23/2023. Today, he states the finger is much improved after IV antibiotics. The swelling and redness that was starting to travel down his finger is better. The wound is not open and drainage today. Overall he feels well, no fever or chills. 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 left wrist History of Any Multi-Drug Resistant Organisms: None Reported Past Surgical History: Orthopedic Surgery Additional Past Surgical History / Comment(s): niya. carpal tunnel rep., left wrist surg. for fx, mult. 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 He is alert and oriented x3. Exam of the left hand reveals a ulcerated area to the tip of the left middle finger. There was a previous amputation to the finger. There is improved swelling and no erythema to the finger. No active drainage. No open areas at this time. Circulatory is intact. There is numbness to the finger tip. Results X-rays of the left hand reveals bony destruction to the distal phalanx of the left middle finger. - Labs Labs: H & H 08/24/23 Range/Units 00:28 Hgb 13.7 (13.0-17.5) gm/dL Hct 41.5 (39.0-53.0) % Result Diagrams: 08/24/23 00:28 08/24/23 00:28 Assessment and Plan (1) Finger osteomyelitis, left Current Visit: No Status: Acute Code(s): M86.9 - OSTEOMYELITIS, UNSPECIFIED SNOMED Code(s): 9255295410083441 (2) Open wound of left middle finger Current Visit: No Status: Acute Code(s): S61.203A - UNSP OPEN WOUND OF L MID FINGER W/O DAMAGE TO NAIL, INIT SNOMED Code(s): 87216500948310927 Plan: The clinical and x-ray findings were discussed with the patient. The case was discussed with Dr. Tomlinson and Dr. Weinberg. The patient's finger does not warrant urgent debridement or amputation at this time. He would like to avoid further amputation at this point. Continue antibiotics per infectious disease. We will give the antibiotics time and if the osteomyelitis and infection worsen, we will reevaluate for amputation at a later time. He is orthopedically stable for discharge home when antibiotics have been determined. We will follow the saige ent closely in the outpatient setting.
[2023-08-25] MEDS ORDERED: VANCOMYCIN TROUGH DUE 1 EACH MISC MISCELLANE ONE (09:00)
[2023-08-25] MEDS: HYDROmorphone 1 MG/ML 1 ML SYRINGE IVP PRN ×3 (09:07→19:59)
[2023-08-25] MEDS: SODIUM CHLORIDE 0.9% 1,000 ML IV SCH ×3 (09:09→20:02)
--- NOTE | 2023-08-25 13:00 | P.PN ---
Subjective Progress Note Date: 08/25/23 patient is a 48-year-old gentleman with no significant past medical history presented to the ER for left middle finger infection. Patient history ofleft middle finger osteomyelitis in this patient who is status post left middle finger distal phalanx amputation on 10/27/2022. Patient was on vacation when he noticed that his middle finger was getting swollen and red, there was purulent discharge from the tip of the finger, it was followed by the tip of the finger sloughing off. There was no complain fever or chills. No complain of weakness and lethargy. Patient stated the drainage from the finger has improved. Patient daughter told the patient, to come to the ER Initial lab work done in the ER showed WBC 6.2, hemoglobin 13.7, platelet count 201, sodium 139 potassium 4.1, BUNs 18, creatinine 0.75, X-ray left finger showed erosion of the longer finger middle phalanx distal metaphysis concerning for severe osteomyelitis Patient admitted to medicine service 08/25. Patient seen and examined. Denies any drainage from the left middle finger, denies any pain. Vital signs stable REVIEW OF SYSTEMS: CONSTITUTIONAL: No fever, no malaise,. CARDIOVASCULAR: No chest pain, no palpitations, no syncope. PULMONARY: No shortness of breath, no cough, GASTROINTESTINAL: No diarrhea, no nausea, no vomiting, no abdominal pain. NEUROLOGICAL: No headaches, no weakness, PHYSICAL EXAMINATION: GENERAL: The patient is alert and oriented x3, not in any acute distress. Well developed, well nourished. HEENT: Pupils are round and equally reacting to light. EOMI. No scleral icterus. No conjunctival pallor. Normocephalic, atraumatic. No pharyngeal erythema. No thyromegaly. CARDIOVASCULAR: S1 and S2 present. No murmurs, rubs, or gallops. PULMONARY: Chest is clear to auscultation, no wheezing or crackles. ABDOMEN: Soft, nontender, nondistended, normoactive bowel sounds. No palpable organomegaly. MUSCULOSKELETAL: No joint swelling or deformity. EXTREMITIES: Ulcer on middle phalanx of middle finger of left hand NEUROLOGICAL: Gross neurological examination did not reveal any focal deficits. SKIN: No rashes. Assessment and plan Acute osteomyelitis of middle phalanx of middle finger of left hand Monitor vital signs Monitor CBC Monitor CMP Follow-up on wound cultures Continue wound care Continue IV Rocephin and vancomycin Continue pain management Orthopedic following ID following Labs and medication were reviewed.. Continue same treatment. Continue with symptomatic treatment. Resume home medication. Monitor labs and vitals. DVT and GI prophylaxis. Further recommendations as per clinical course of the patient Dictation was produced using [email or web address] dictation software. please excuse any g rammatical, word or spelling errors. Objective - Vital Signs Vital signs: Vital Signs Temp 97.4 F L 08/25/23 08:00 Pulse 65 08/25/23 08:00 Resp 18 08/25/23 08:00 BP 125/74 08/25/23 08:00 Pulse Ox 96 08/25/23 08:00 FiO2 Intake & Output 08/24/23 08/25/23 08/25/23 18:59 06:59 18:59 Intake Total 150 590 Balance 150 590 Weight 95.254 kg Intake: Intake, IV Titration 150 Amount Sodium Chloride 0.9% 1, 150 000 ml @ 75 mls/hr IV . [id number] [facility] Rx#:[id number] Oral 590 Other: # Voids 2 - Labs CBC & Chem 7: 08/24/23 00:28 08/24/23 00:28
[2023-08-25 15:01] LABS: HCT 43.1 % (39.6-50.0); MCH 29.4 pg (27.0-32.0); MCHC 32.5 g/dL (32.0-37.0); MCV 90.5 FL (80.0-97.0); Mean Platelet Volume 12.9 FL (9.5-12.2); NRBC Per 100 WBC 0 X 10*3/uL (0.00-0.01); Platelet Count 186 X 10*3/uL (140-440); RBC 4.76 X 10*6/uL (4.40-5.60); RDW 13.5 % (11.5-14.5); WBC 6.38 X 10*3/uL (4.50-10.00)
[2023-08-25 15:45] LABS: ALT 12 U/L (10-49); AST 13 U/L (14-35); Alkaline Phosphatase 57 U/L (41-126); Blood Urea Nitrogen 8.4 mg/dL (9.0-27.0); Calcium 9.2 mg/dL (8.7-10.3); Carbon Dioxide 22.5 mmol/L (21.6-31.8); Chloride 108 mmol/L (96-109); Glucose 128 mg/dL (70-110); Sodium 142 mmol/L (135-145); Total Bilirubin 0.3 mg/dL (0.3-1.2)
[2023-08-26] MEDS: VANCOMYCIN 1,500 MG in SODIUM CHLORIDE 0.9% 500 ML 500 ML IVPB SCH ×2 (01:26→12:29)
[2023-08-26 08:21] VITALS: BP 119/75; PULSE 64; RESP 17; TEMP 98.2
--- NOTE | 2023-08-26 08:44 | P.PN ---
Subjective Progress Note Date: 08/26/23 Principal diagnosis: Left middle finger infection The patient is a 48 y/o male well known to our practice who presented to the Emergency Department at [facility] two days ago for a worsening infection to his left middle finger. He was started on IV antibiotics. He stat es the finger has improved greatly since admission. The patient was started on Keflex in our office on 08/04/2023 for a small draining wound to the left middle finger. He went on vacation and he states the finger opened up while in the ocean most of the day. The wound continued to worsen and he presented to the ER on 08/23/2023. Today, he states the finger continues to improve. The wound is not open and drainage today. Overall he feels well, no fever or chills. Objective - Vital Signs Vital signs: Vital Signs Temp 98.2 F 08/26/23 08:00 Pulse 64 08/26/23 08:00 Resp 17 08/26/23 08:00 BP 119/75 08/26/23 08:00 Pulse Ox 95 08/26/23 08:00 FiO2 Intake & Output 08/25/23 08/26/23 08/26/23 18:59 06:59 18:59 Intake Total 590 Balance 590 Intake: Oral 590 Other: Voiding Method Toilet # Voids 2 - Exam The patient is a 48 y/o male in no acute distress. He is alert and oriented x3. Exam of the left hand reveals a ulcerated area to the tip of the left middle finger. There was a previous amputation to the finger. There is improved swelling and no erythema to the finger. No active drainage. No open areas at this time. Circulatory is intact. There is numbness to the finger tip. - Labs CBC & Chem 7: 08/25/23 08:38 08/26/23 08:49 Labs: Abnormal Lab Results - Last 24 Hours (Table) 08/25/23 08/25/23 Range/Units 08:38 08:38 MPV 12.9 H (9.5-12.2) FL BUN 8.4 L (9.0-27.0) mg/dL Glucose 128 H (70-110) mg/dL AST 13 L (14-35) U/L Total Protein 6.0 L (6.2-8.2) g/dL Microbiology - Last 24 Hours (Table) 08/24/23 00:56 Blood Culture - Preliminary Blood 08/24/23 00:49 Blood Culture - Preliminary Blood Assessment and Plan (1) Finger osteomyelitis, left Status: Acute Code(s): M86.9 - OSTEOMYELITIS, UNSPECIFIED SNOMED Code(s): 5446555866718829 (2) Open wound of left middle finger Status: Acute Code(s): S61.203A - UNSP OPEN WOUND OF L MID FINGER W/O DAMAGE TO NAIL, INIT SNOMED Code(s): 81301733173190170 Plan: The clinical and x-ray findings were discussed with the patient. The case was discussed with Dr. Tomlinson and Dr. Weinberg. The patient's finger does not warrant urgent debridement or amputation at this time. He would like to avoid further amputation at this point. Continue antibiotics per infectious disease. We will give the antibiotics time and if the osteomyelitis and infection worsen, we will reevaluate for amputation at a later time. He is orthopedically stable for discharge home when antibiotics have been determined. We will follow the patient closely in the outpatient setting.
[2023-08-26] MEDS ORDERED: VANCOMYCIN TROUGH DUE 1 EACH MISC MISCELLANE ONE (09:00)
[2023-08-26 09:35] LABS: African American GFR (CKD) >90 (>60 ml/min/1.73 sqM); Non-African American GFR(CKD) >90 (>60 ml/min/1.73 sqM)
[2023-08-26] MEDS ORDERED: VANCOMYCIN 1,750 MG in SODIUM CHLORIDE 0.9% 500 ML 500 ML IVPB SCH (11:00)
[2023-08-26] MEDS: HYDROmorphone 1 MG/ML 1 ML SYRINGE IVP PRN (11:49)
[2023-08-26] MEDS: SODIUM CHLORIDE 0.9% 1,000 ML IV SCH (11:51)
--- NOTE | 2023-08-26 12:28 | P.DS ---
Providers Date of admission: 08/24/23 00:51 Expected date of discharge: 08/26/23 Attending physician: Chelsey Manning Consults: 08/24/23 00:51 Consult Physician Urgent Consulting Provider: Kavya Tomlinson Consult Reason/Comments: osteomyelitis Do you want consulting provider notified?: Yes, Notify in am 08/24/23 01:26 Consult Physician Urgent Consulting Provider: Sg Weinberg Consult Reason/Comments: osteomyelitis Do you want consulting provider notified?: Yes, Notify in am Primary care physician: Stated None Hospital Course: Discharge diagnoses; Acute osteomyelitis of middle phalanx of middle finger of left hand Hospital course; patient is a 48-year-old gentleman with no significant past medical history presented to the ER for left middle finger infection. Patient history ofleft middle finger osteomyelitis in this patient who is status post left middle finger distal phalanx amputation on 10/27/2022. Patient was on vacation when he noticed that his middle finger was getting swollen and red, there was purulent discharge from the tip of the finger, it was followed by the tip of the finger sloughing off. There was no complain fever or chills. No complain of weakness and lethargy. Patient stated the drainage from the finger has improved. Patient daughter told the patient, to come to the ER Initial lab work done in the ER showed WBC 6.2, hemoglobin 13.7, platelet count 201, sodium 139 potassium 4.1, BUNs 18, creatinine 0.75, X-ray left finger showed erosion of the longer finger middle phalanx distal metaphysis concerning for severe osteomyelitis Patient admitted to medicine service 08/25. Patient seen and examined. Denies any drainage from the left middle finger, denies any pain. Vital signs stable 08/26. Orthopedic evaluation the patient, recommended no surgical intervention. ID recommend sending patient on Keflex 500 mg 4 times daily for 2 weeks. Outpatient follow-up with infectious disease and orthopedics PHYSICAL EXAMINATION: GENERAL: The patient is alert and oriented x3, not in any acute distress. Well developed, well nourished. HEENT: Pupils are round and equally reacting to light. EOMI. No scleral icterus. No conjunctival pallor. Normocephalic, atraumatic. No pharyngeal erythema. No thyromegaly. CARDIOVASCULAR: S1 and S2 present. No murmurs, rubs, or gallops. PULMONARY: Chest is clear to auscultation, no wheezing or crackles. ABDOMEN: Soft, nontender, nondistended, normoactive bowel sounds. No palpable organomegaly. MUSCULOSKELETAL: No joint swelling or deformity. EXTREMITIES: Ulcer on middle phalanx of middle finger of left hand NEUROLOGICAL: Gross neurological examination did not reveal any focal deficits. SKIN: No rashes. Dictation was produced using [employer] dictation software. please excuse any grammatical, word or spelling errors. Patient Condition at Discharge: Fair Plan - Discharge Summary Discharge Rx Participant: No New Discharge Prescriptions: New Cephalexin [Keflex] 500 mg PO Q6HR 14 Days #56 cap Discharge Medication List Cephalexin [Keflex] 500 mg PO Q6HR 14 Days #56 cap 08/26/23 [Rx] Follow up Appointment(s)/Referral(s): Kavya Tomlinson DO [Doctor of Osteopathic Medicine] - 1 Week None,Stated [Primary Care Provider] - 1-2 days Sg Weinberg MD [STAFF PHYSICIAN] - 1 Week Discharge Disposition: HOME SELF-CARE
--- NOTE | 2023-08-26 15:36 | P.PN ---
Subjective Progress Note Date: 08/25/23 Principal diagnosis: Reason for follow-up is left middle fingertip wound and concern for osteomyelitis Patient is a 48-year-old male with a previous history of left middle finger tip osteomyelitis requiring distal phalanx amputation culture positive for MSSA that was in October 2022 now presented to the hospital in August 2023 with a wound to the tip of his left middle finger abnormal x-ray, suspicious for osteomyelitis Today's Evaluation That Is 08/25/2023 the patient continues to be afebrile, the patient is breathing comfortably on room air without need for oxygen, the patient denies having any chest pain or cough and no sputum production, patient denies nausea vomiting or any diarrhea, and no abdominal pain, the patient denies any worsening pain to the left middle finger and the patient has been insisting on going home as orthopedics told him to not doing any surgical intervention Patient did have a white count of 6.38 creatinine 0.7, Vanco trough is 7.4, blood cultures pending Objective - Vital Signs Vital signs: Vital Signs Temp 97.4 F L 08/25/23 08:00 Pulse 65 08/25/23 08:00 Resp 18 08/25/23 08:00 BP 125/74 08/25/23 08:00 Pulse Ox 96 08/25/23 08:00 FiO2 Intake & Output 08/24/23 08/25/23 08/25/23 18:59 06:59 18:59 Intake Total 150 590 Balance 150 590 Weight 95.254 kg Intake: Intake, IV Titration 150 Amount Sodium Chloride 0.9% 1, 150 000 ml @ 75 mls/hr IV . [id number] [facility] Rx#:[id number] Oral 590 Other: # Voids 2 - Exam GENERAL DESCRIPTION: Middle-aged male lying in bed in no distress RESPIRATORY SYSTEM: Unlabored breathing , clear to auscultation anteriorly HEART: S1 S2 regular rate and rhythm , ABDOMEN: Soft , no tenderness EXTREMITIES: Left middle finger tip did have a dry crusted area that was removed with the Q-tip did have a wound both aerobic and anaerobic cultures were obtained - Labs CBC & Chem 7: 08/25/23 08:38 08/26/23 08:49 Assessment and Plan (1) Finger osteomyelitis, left Status: Acute Code(s): M86.9 - OSTEOMYELITIS, UNSPECIFIED SNOMED Code(s): 8274191830750186 (2) Open wound of left middle finger Status: Acute Code(s): S61.203A - UNSP OPEN WOUND OF L MID FINGER W/O DAMAGE TO NAIL, INIT SNOMED Code(s): 26887348143369768 Plan: 1patient presented to hospital with increasing pain and swelling and drainage to the left middle finger in this patient who did have a previous history of middle fingertip osteomyelitis requiring amputation of the distal phalanx culture positive for MSSA that was back in October 2022 for which the patient has completed antibiotic and the patient did have overall healing of his wound now presenting to hospital almost 10 months later with reopening of the wound and drainage failing outpatient oral antibiotic therapy with abnormal x-ray concerning for osteomyelitis 2- orthopedic surgery has evaluated the patient and not doing any surgical debridement of the culture positive and to obtain cultures today 3-patient has been insisting on going home today significant amount of time was spent with the patient in the front of the RN explaining to him that he needs to wait for the culture and IV antibiotics on the basis of those culture however the patient is refusing and threatening to leave AMA has been advised to at least wait for the Gram stain that will give us some idea if we are dealing with a gram-positive or gram-negative pathogen and may consider oral antibiotic on the basis of those however the patient is aware of the fact that we may not waste picker the right antibiotic as the cultures will not be finalized by tomorrow and oral antibiotics are not a treatment for osteomyelitis patient verbalized understanding and continued to refuse waiting for culture and outpatient IV ant ibiotic therapy Dictation was produced using [employer] dictation software. please excuse any grammatical, word or spelling errors. Time with Patient: Greater than 30
--- NOTE | 2023-08-26 15:39 | P.PN ---
Subjective Progress Note Date: 08/26/23 Principal diagnosis: Reason for follow-up is left middle fingertip wound and concern for osteomyelitis Patient is a 48-year-old male with a previous history of left middle finger tip osteomyelitis requiring distal phalanx amputation culture positive for MSSA that was in October 2022 now presented to the hospital in August 2023 with a wound to the tip of his left middle finger abnormal x-ray, suspicious for osteomyelitis Today's Evaluation That Is 08/26/2023, the patient denies any fever or any chills, the patient is breathing comfortably on room air, patient denies chest pain shortness of breath, or cough, patient denies Abdominal pain and denies any nausea/vomiting or diarrhea , the patient pain to the left middle finger has decreased in intensity and the patient is insisting on going home Patient did have a white count of 6.38 as of 09/11/2023 creatinine is 0.59, Vanco trough is 13.4 Gram stain showing gram-positive cocci cultures are pending Objective - Vital Signs Vital signs: Vital Signs Temp 98.2 F 08/26/23 08:00 Pulse 64 08/26/23 08:40 Resp 17 08/26/23 08:40 BP 119/75 08/26/23 08:00 Pulse Ox 95 08/26/23 08:00 FiO2 Intake & Output 08/25/23 08/26/23 08/26/23 18:59 06:59 18:59 Intake Total 590 Balance 590 Intake: Oral 590 Other: Voiding Method Toilet Toilet # Voids 2 - Exam GENERAL DESCRIPTION: Middle-aged male lying in bed in no distress RESPIRATORY SYSTEM: Unlabored breathing , clear to auscultation anteriorly HEART: S1 S2 regular rate and rhythm , ABDOMEN: Soft , no tenderness EXTREMITIES: Left middle finger tip is currently dressed no drainage on the dressing - Labs CBC & Chem 7: 08/25/23 08:38 08/26/23 08:49 Labs: Abnormal Lab Results - Last 24 Hours (Table) 08/25/23 08/25/23 08/26/23 Range/Units 08:38 08:38 08:49 MPV 12.9 H (9.5-12.2) FL BUN 8.4 L (9.0-27.0) mg/dL Creatinine 0.59 L (0.66-1.25) mg/dL Glucose 128 H (70-110) mg/dL AST 13 L (14-35) U/L Total Protein 6.0 L (6.2-8.2) g/dL Microbiology - Last 24 Hours (Table) 08/25/23 13:20 Gram Stain - Preliminary Hand - Left 08/24/23 00:56 Blood Culture - Preliminary Blood 08/24/23 00:49 Blood Culture - Preliminary Blood Assessment and Plan (1) Finger osteomyelitis, left Status: Acute Code(s): M86.9 - OSTEOMYELITIS, UNSPECIFIED SNOMED Code(s): 8458891147523471 (2) Open wound of left middle finger Status: Acute Code(s): S61.203A - UNSP OPEN WOUND OF L MID FINGER W/O DAMAGE TO NAIL, INIT SNOMED Code(s): 67467546813340875 Plan: 1patient presented to hospital with increasing pain and swelling and drainage to the left middle finger in this patient who did have a previous history of middle fingertip osteomyelitis requiring amputation of the distal phalanx culture positive for MSSA that was back in October 2022 for which the patient has completed antibiotic and the patient did have overall healing of his wound now presenting to hospital almost 10 months later with reopening of the wound and drainage failing outpatient oral antibiotic therapy with abnormal x-ray concerning for osteomyelitis 2- orthopedic surgery has evaluated the patient and not doing any surgical debridement of the culture positive and to obtain cultures today 3-patient has been insisting on going home today significant amount of time was spent with the patient in the front of the RN explaining to him that he needs to wait for the culture and IV antibiotics on the basis of those culture however the patient is refusing and threatening to leave AMA , patient verbalized understanding and continued to refuse waiting for culture and outpatient IV antibiotic therapy, with the Gram stain showing gram-positive cocci could be MSSA or MRSA he has previously growing MSSA on the basis of that patient be giv en oral Keflex and close outpatient follow-up, case was discussed in detail with the patient nurse as well as admitting physician Dictation was produced using [employer] dictation software. please excuse any grammatical, word or spelling errors. Time with Patient: Greater than 30
== END 2023-08-26 14:38 | disposition home or self-care (01) | DRG 349 ==
LOC: EC 20:51 → 5NMEDONC 08-24 00:51
PROVIDERS: ADMIT Hospitalist; ATTEND Hospitalist
DX: T87.42 Infection of amputation stump, left upper extremity (principal); L03.012 Cellulitis of left finger; F17.210 Nicotine dependence, cigarettes, uncomplicated; F41.9 Anxiety disorder, unspecified; L98.494 Non-pressure chronic ulcer of skin of other sites with necrosis of bone; M86.142 Other acute osteomyelitis, left hand; Z87.81 Personal history of (healed) traumatic fracture; Z91.81 History of falling; Z28.310 Unvaccinated for COVID-19; Z28.21 Immunization not carried out because of patient refusal
CPT/HCPCS: 36415; 80053; 80202; 82565; 83605; 85025; 85027; 87040; 87070; 87075; 87077; 87186; 87205; 96361; 96365; 96366; 96367; 96375; 99285